=== PATIENT | female | born 1940 | race Caucasian/White ===

== ENCOUNTER 2016-03-17 13:07 | Observation (INO) | payer OTHER ==
--- NOTE | 2016-03-17 13:44 | EDPHY ---
H & P Time Seen by Provider: 03/17/16 13:44 HPI/ROS: CHIEF COMPLAINT: Short of breath HISTORY OF PRESENT ILLNESS: This 75-year-old woman has a history of interstitial lung disease and she was child and history of prior pulmonary embolism. She returned from airplane flight to [place] on this past Monday but also had a recent upper respiratory infection with nonproductive cough and congestion. She has felt increasingly exhausted and shortness of breath on exertion since [place] returned [place] She says her shortness of breath is worse with exertion and she has trouble walking from 1 side of her house to the other without getting short of breath. She still is a little bit of a nonproductive cough. No chest pain or hemoptysis or leg swelling. Symptoms are moderate to severe today and she called her primary care physician at [facility] who requested that she respond to the closest emergency department for evaluation. REVIEW OF SYSTEMS: Eye: no change in vision ENT: no sore throat Cardiac: no chest pain or syncope Pulmonary: HPI Abdomen: no vomiting, diarrhea, abdominal pain Musculoskeletal: no back pain Skin: no rash Neuro: no headache Constitutional: no fever : no urinary symptoms A comprehensive 10 point review of systems is otherwise negative aside from elements mentioned in the history of present illness. PAST MEDICAL HISTORY: Discharge summary dated 11/08/2008 reviewed personally by myself includes hypothyroid, hypertension, renal stones, interstitial lung disease, anemia, pulmonary embolism. Social history: Nonsmoker General Appearance: Alert and conversant, cooperative. Eyes: No scleral icterus. 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 ENT, Mouth: Normal mucous membranes. Respiratory: Normal respiratory effort, breath sounds equal, lungs are clear to auscultation. Cardiovascular: Regular rate and rhythm. Gastrointestinal: Abdomen is soft and non tender. Neurological: Alert and oriented x3. Normally conversant. Face symmetric, normal movement and sensation in all extremities. Skin: Warm and dry, no rashes. Musculoskeletal: No peripheral edema and no joint swelling. No calf tenderness Psychiatric: Not agitated. Emergency Department course/MDM: Plan for EKG and troponin. Suspicion for pulmonary embolism is at least moderate with the degree of her symptoms and previous pulmonary embolism at least once. I think that even with negative D-dimer my suspicion would be high enough for imaging, CT scan angiography of the chest discussed and consented. 1550: CT results reviewed with the patient, evidence of pulmonary embolism on the right side. Lovenox 60mg SQ administered in ED. 1539: Discussed with Agrawal [facility] requested admit her to [facility]. Smoking Status: Former smoker Constitutional: Initial Vital Signs Temperature (C) 36.8 C 03/17/16 13:19 Heart Rate 65 03/17/16 13:19 Respiratory Rate 18 03/17/16 13:19 Blood Pressure 142/67 H 03/17/16 13:19 O2 Sat (%) 95 03/17/16 13:19 O2 Delivery Mode Room Air Allergies/Adverse Reactions: No Known Allergies Allergy (Verified 03/17/16 13:16) Home Medications: Medication Instructions Recorded Atenolol [Tenormin 50 mg (*)] 50 mg PO BID 03/17/16 Atorvastatin Calcium [Lipitor 10 10 mg PO DAILY 03/17/16 mg (*)] Citalopram Hydrobromide [celeXA 10 15 mg PO DAILY 03/17/16 MG] Furosemide [Lasix 20 MG (*)] 20 mg PO DAILY 03/17/16 Gabapentin [Neurontin 300 MG (*)] 300 mg PO HS 03/17/16 Gabapentin [Neurontin 300 MG (*)] 600 mg PO DAILY 03/17/16 Levothyroxine [Synthroid 112 mcg 112 mcg PO DAILY06 03/17/16 (*)] Potassium Cl [Klor-Con] 10 meq PO BID 03/17/16 Ranitidine HCl [Taladine] 150 mg PO BID 03/17/16 amLODIPine BESYLATE [Norvasc 10 mg 10 mg PO DAILY 03/17/16 (*)] traMADol [Ultram 50 mg (*)] 50 mg PO HS 03/17/16 traZODone [traZODONE 50MG (*)] 50 mg PO HS 03/17/16 Medical Decision Making - Diagnostics EKG Interpretation: 12-lead EKG interpreted by me; official reading is in trace master. My interpretation is sinus rhythm, borderline left axis, rate 61 with no acute ischemic changes Imaging: CT angiography of the chest reviewed with Dr. Mcleod and independently by myself at 3:34 p.m. shows right-sided pulmonary embolism. Differential Diagnosis: Differential diagnosis considered for shortness of breath including but not limited to pulmonary infectious process, COPD, asthma, pulmonary embolus and congestive heart failure. Consult/Admit Bed Type: Dr. Lucas 3653 - Data Points Laboratory Results: Laboratory Results 03/17/16 14:00 03/17/16 14:00 03/17/16 03/17/16 03/17/16 14:20 14:09 14:00 WBC 8.80 10^3/uL (3.80-9.50) RBC 4.65 10^6/uL (4.18-5.33) Hgb 11.2 L g/dL (12.6-16.3) POC Hgb 12.9 gm/dL (12.3-15.9) Hct 36.7 L % (38.0-47.0) POC Hct 38 % (35.5-47.5) MCV 78.9 L fL (81.5-99.8) MCH 24.1 L pg (27.9-34.1) MCHC 30.5 L g/dL (32.4-36.7) RDW 15.2 % (11.5-15.2) Plt Count 382 10^3/uL (150-400) MPV 9.6 fL (8.7-11.7) Neut % (Auto) 74.2 % (39.3-74.2) Lymph % (Auto) 14.0 L % (15.0-45.0) [place] % (Auto) 8.5 % (4.5-13.0) Eos % (Auto) 2.4 % (0.6-7.6) Baso % (Auto) 0.6 % (0.3-1.7) Nucleat RBC Rel Count 0.0 % (0.0-0.2) Absolute Neuts (auto) 6.53 H 10^3/uL (1.70-6.50) Absolute Lymphs (auto) 1.23 10^3/uL (1.00-3.00) Absolute Monos (auto) 0.75 10^3/uL (0.30-0.80) Absolute Eos (auto) 0.21 10^3/uL (0.03-0.40) Absolute Basos (auto) 0.05 10^3/uL (0.02-0.10) Absolute Nucleated RBC 0.00 10^3/uL (0-0.01) Immature Gran % 0.3 % (0.0-1.1) Immature Gran # 0.03 10^3/uL (0.00-0.10) PT 12.4 SEC (12.0-15.0) INR 0.93 (0.83-1.16) APTT 21.5 L SEC (23.0-38.0) POC Sodium 147 H mEq/L (134-144) Sodium 147 H mEq/L (134-144) POC Potassium 4.1 mEq/L (3.3-5.0) Potassium 4.6 mEq/L (3.5-5.2) POC Chloride 110 H mEq/L (96-108) Chloride 108 mEq/L (97-110) Carbon Dioxide 23 mEq/l (22-31) Anion Gap 16 mEq/L (8-16) POC BUN 20 mg/dL (7-23) BUN 17 mg/dL (7-23) Creatinine 0.9 mg/dL (0.6-1.0) POC Creatinine 1.0 mg/dL (0.6-1.2) Estimated GFR > 60 Glucose 97 mg/dL (70-100) POC Glucose 103 H mg/dL (70-100) Calcium 10.1 mg/dL (8.5-10.4) Troponin I < 0.012 ng/mL (0-0.034) Influenza Typ A,B (DFA) NEGATIVE FOR FLU (NEGATIVE) Medications Given: Discontinued Medications Enoxaparin Sodium (Lovenox) 60 mg SC EDNOW ONE Stop: 03/17/16 15:37 Last Admin: 03/17/16 16:05 Dose: 60 mg Point of Care Test Results: 03/17/16 14:09 POC Sodium 147 H POC Potassium 4.1 POC Chloride 110 H POC BUN 20 POC Creatinine 1.0 POC Glucose 103 H Departure - Departure Disposition: [facility] Clinical Impression: Pulmonary embolism Condition: Good
--- NOTE | 2016-03-17 14:12 | CPEKG ---
Heart Rate: 61 RR Interval: 984 P-R Interval: 164 QRSD Interval: 86 QT Interval: 472 QTC Interval: 476 P [place]: 14 QRS [place]: -22 T Wave [place]: 44 EKG Severity - OTHERWISE NORMAL ECG - EKG Impression: SINUS RHYTHM EKG Impression: BORDERLINE LEFT AXIS DEVIATION Electronically Signed By: Brandon Gillespie 17-Mar-2016 14:16:13
[2016-03-17 14:26] LABS: % IMMATURE GRANULYOCYTES 0.3 % (0.0-1.1); ABSOLUTE IMMATURE GRANULOCYTES 0.03 10^3/uL (0.00-0.10); ADD DIFF? NO; ADD MORPH? NO; ADD SCAN? NO; ATYPICAL LYMPHOCYTE FLAG 20 (0-99); FRAGMENT RBC FLAG 0 (0-99); HEMATOCRIT 36.7 % (38.0-47.0); HEMOGLOBIN 11.2 g/dL (12.6-16.3); LEFT SHIFT FLG 0 (0-99); LIPEMIA HEMOLYSIS FLAG 80 (0-99); MEAN CELL HEMOGLOBIN 24.1 pg (27.9-34.1); MEAN CELL HEMOGLOBIN CONCENTR. 30.5 g/dL (32.4-36.7); MEAN CELL VOLUME 78.9 fL (81.5-99.8); MEAN PLATELET VOLUME 9.6 fL (8.7-11.7); PLATELET CLUMPS FLAG 10 (0-99); PLATELET COUNT 382 10^3/uL (150-400); RED BLOOD CELL COUNT 4.65 10^6/uL (4.18-5.33); RED CELL DISTRIBUTION WIDTH 15.2 % (11.5-15.2)
[2016-03-17 14:36] LABS: APTT 21.5 SEC (23.0-38.0); INR 0.93 (0.83-1.16); PROTIME(PATIENT) 12.4 SEC (12.0-15.0)
[2016-03-17] MEDS ORDERED: IOPAMIDOL (ISOVUE 370) 75 ML BTL IV ONE (14:40)
[2016-03-17 14:44] LABS: ANION GAP 16 mEq/L (8-16); CALCIUM 10.1 mg/dL (8.5-10.4); CARBON DIOXIDE 23 mEq/l (22-31); CHLORIDE 108 mEq/L (97-110); CREATININE 0.9 mg/dL (0.6-1.0); GLOMERULAR FILTRATION RATE > 60; GLUCOSE 97 mg/dL (70-100); POTASSIUM 4.6 mEq/L (3.5-5.2); SODIUM 147 mEq/L (134-144)
[2016-03-17 14:55] LABS: TROPONIN I < 0.012 ng/mL (0-0.034)
[2016-03-17] MEDS ORDERED: ENOXAPARIN 60 MG/0.6 ML SYR SC ONE (15:36)
--- NOTE | 2016-03-17 15:46 | CT ---
CT Pulmonary Angiogram Clinical Indications: Dyspnea, history of pulmonary embolism. Technique: Thinly collimated multidetector helical CT imaging was performed through the chest while 90 mL Isovue-370 were injected intravenously, without complication. The images were then transferred to an independent workstation where multiplanar and three-dimensional reconstructions were performed by me and reviewed at multiple windows. Dose reduction techniques were utilized. Findings Chest: No pulmonary masses are found. No pleural effusion. No compression fracture of thoracic spi ne. Stenosis of right subclavian vein is found in the usual place between the clavicle and the right 1st rib. CT Pulmonary Angiogram: Filling defects are present within upper and lower lobe branches of right pu lmonary artery. Left pulmonary artery and branches are clear Right ventricle and right atrium are no t dilated. Impressions 1. Acute right pulmonary embolism. 2. Stenosis of right subclavian vein. I discussed results with Dr. Brandon Gillespie at 1534 hours.
[2016-03-17] MEDS ORDERED: ONDANSETRON DISINTEGRATING 4 MG TAB PO PRN (17:14)
[2016-03-17] MEDS ORDERED: ACETAMINOPHEN 325 MG TAB PO PRN (17:14)
[2016-03-17] MEDS ORDERED: ONDANSETRON 4 MG/2 ML VIAL IVP PRN (17:14)
--- NOTE | 2016-03-17 17:51 | GHP ---
[f rep st] HISTORY AND PHYSICAL DATE OF ADMISSION: 03/17/2016 CHIEF COMPLAINT: Shortness of breath. HISTORY OF PRESENT ILLNESS: This is a 75-year-old female with a history of pulmonary embolism in the past. She had been on anticoagulation until several years ago. She has a vacation home in [facility] and states that she just came back from there. While she was in [facility], she did have some right lower ext remity swelling. She also had a cough and a little bit of shortness of breath at the time, although this was mild. When she came back to [place], she noticed shortness of breath almost immediately. She [place] [address] [place] and has been having significant dyspnea on exertion. She is not having any chest pain. She has a mild cough that is nonproductive. No fevers or chills. The swelli ng in her leg seems to be improving. REVIEW OF SYSTEMS: A 10-point review of systems was obtained and other than stated above was negativ e. PAST MEDICAL HISTORY: 1. Pulmonary embolism at least twice, although her memory is somewhat shaky. She says she had some 3 or 4 years ago, but then also on an H and P in 2008 it looks like she had one a year prior to that. 2. Interstitial lung disease, although this appears to be quiescent at this time. 3. History of kidney stones. 4. Hypothyroidism. 5. Restless legs syndrome. 6. Hypertension. 7. GERD. SOCIAL HISTORY: No smoking. Occasional alcohol. Is . FAMILY HISTORY: Type 2 diabetes and hypertension but no blood clots. PHYSICAL EXAMINATION: VITAL SIGNS: Afebrile. Blood pressure is 158/60. Heart rate is 60. Oxygen saturation 95% on room air, 98% on 2 L. GENERAL: The patient is well developed. No apparent distre ss. HEENT: Nonicteric sclerae. Extraocular movements intact. Moist mucous membranes. NECK: Supp le. No thyromegaly. LUNGS: Good effort. Clear to auscultation bilaterally. CARDIOVASCULAR: Regu lar rate and rhythm. No murmurs or gallops. ABDOMEN: Positive bowel sounds. Soft, nontender, nond istended. No hepatosplenomegaly. EXTREMITIES: No clubbing, cyanosis, or edema. SKIN: Without sergey h. Warm, dry, intact. NEUROLOGIC: Alert and oriented x3. Moves all 4 extremities equally. PSYCH: Normal mood and affect. LABS: White count is 8. Hemoglobin is 11. Platelets are 389. Sodium 147, potassium 4.1. BUN is 2 3, creatinine 0.9. Troponin is negative. EKG, personally reviewed and interpreted, shows normal sinus rhythm with no ischemic changes. ASSESSMENT: This is a 75-year-old female presenting with recurrent pulmonary embolism. PLAN: 1. Pulmonary embolism. The patient will be admitted. Lovenox will be started. She is interested i n trying one of the newer anticoagulants. Thus, we will hold off on any Coumadin loading. She has n o evidence of right heart strain, at least on CT scan or on EKG. Her vitals are stable, and she has no more swelling in her legs. I do not see a clear indication for getting an echocardiogram or ultra sound at this point. She should be on lifelong Coumadin no matter what her hypercoagulable panel womoisés villanueva say. 2. Hypertension. We will continue her medications. 3. Questionable history of interstitial lung disease. This is not being read out on CT scan. 4. 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 The patient does not seem to be having symptoms. 5. Admission. The patient will be admitted under full admission status. Case discussed with the ER doctor. Old records are reviewed and summarized in the HPI. /[id number]/MODL
[2016-03-17] MEDS: ATENOLOL 50 MG TAB PO SCH (20:07)
[2016-03-17] MEDS: FAMOTIDINE 20 MG TAB PO SCH (20:07)
[2016-03-17] MEDS: POTASSIUM CL 10 MEQ TAB PO SCH (20:08)
[2016-03-17] MEDS: ENOXAPARIN 60 MG/0.6 ML SYR SC SCH (20:08)
[2016-03-17] MEDS ORDERED: traZODone 50 MG TAB PO SCH (21:00)
[2016-03-17] MEDS ORDERED: RANITIDINE HCL 150 MG PO SCH (21:00)
[2016-03-17] MEDS ORDERED: GABAPENTIN 300 MG CAP PO SCH (21:00)
[2016-03-18] MEDS ORDERED: MELATONIN 3 MG TAB PO PRN (01:26)
[2016-03-18] MEDS ORDERED: LEVOTHYROXINE 112 MCG TAB PO SCH (06:00)
[2016-03-18 06:41] LABS: % IMMATURE GRANULYOCYTES 0.3 % (0.0-1.1); ABSOLUTE IMMATURE GRANULOCYTES 0.02 10^3/uL (0.00-0.10); ADD DIFF? NO; ADD MORPH? NO; ADD SCAN? NO; ATYPICAL LYMPHOCYTE FLAG 30 (0-99); FRAGMENT RBC FLAG 0 (0-99); HEMATOCRIT 32.6 % (38.0-47.0); HEMOGLOBIN 9.9 g/dL (12.6-16.3); LEFT SHIFT FLG 0 (0-99); LIPEMIA HEMOLYSIS FLAG 80 (0-99); MEAN CELL HEMOGLOBIN 24.4 pg (27.9-34.1); MEAN CELL HEMOGLOBIN CONCENTR. 30.4 g/dL (32.4-36.7); MEAN CELL VOLUME 80.3 fL (81.5-99.8); MEAN PLATELET VOLUME 9.8 fL (8.7-11.7); PLATELET CLUMPS FLAG 0 (0-99); PLATELET COUNT 318 10^3/uL (150-400); RED BLOOD CELL COUNT 4.06 10^6/uL (4.18-5.33); RED CELL DISTRIBUTION WIDTH 15.2 % (11.5-15.2)
[2016-03-18 06:46] LABS: ALANINE AMINOTRANSFERASE 30 IU/L (9-52); ALKALINE PHOSPHATASE 116 IU/L (38-126); ANION GAP 12 mEq/L (8-16); ASPARTATE AMINOTRANSFERASE 20 IU/L (14-46); BILIRUBIN,TOTAL 0.3 mg/dL (0.1-1.4); CALCIUM 9.2 mg/dL (8.5-10.4); CARBON DIOXIDE 27 mEq/l (22-31); CHLORIDE 107 mEq/L (97-110); CREATININE 0.9 mg/dL (0.6-1.0); GLOMERULAR FILTRATION RATE > 60; GLUCOSE 97 mg/dL (70-100); SODIUM 146 mEq/L (134-144); TOTAL PROTEIN 5.8 g/dL (6.3-8.2)
[2016-03-18] MEDS ORDERED: traMADol 50 MG TAB PO SCH (09:00)
[2016-03-18] MEDS ORDERED: CITALOPRAM HYDROBROMIDE 15 MG PO SCH (09:00)
[2016-03-18] MEDS ORDERED: ATORVASTATIN CALCIUM 10 MG TAB PO SCH (09:00)
[2016-03-18] MEDS ORDERED: FUROSEMIDE 20 MG TAB PO SCH (09:00)
[2016-03-18] MEDS ORDERED: GABAPENTIN 300 MG CAP PO SCH (09:00)
[2016-03-18] MEDS ORDERED: CITALOPRAM 10 MG PO SCH ×2 (09:00)
[2016-03-18] MEDS: ATENOLOL 50 MG TAB PO SCH (09:52)
[2016-03-18] MEDS: ENOXAPARIN 60 MG/0.6 ML SYR SC SCH (09:52)
[2016-03-18] MEDS: FAMOTIDINE 20 MG TAB PO SCH (09:53)
[2016-03-18] MEDS: POTASSIUM CL 10 MEQ TAB PO SCH (09:54)
[2016-03-18 11:12] VITALS: BP 117/59; PULSE 59; RESP 16; TEMP 98.1; O2SAT 90
[2016-03-18] MEDS ORDERED: CITALOPRAM 20 MG TAB PO SCH (12:00)
--- NOTE | 2016-03-19 03:30 | GDS ---
[f rep st] DISCHARGE SUMMARY DISCHARGE DIAGNOSES: Include. 1. Acute pulmonary embolism. 2. History of previous pulmonary embolism. 3. Interstitial lung disease thought to be quiescent. 4. History of kidney stones. 5. Hypothyroidism. 6. Restless legs syndrome. 7. Hypertension. 8. Gastroesophageal reflux disease. HISTORY OF PRESENT ILLNESS: A 75-year-old female, presenting with acute shortness of breath after a trip to [facility]. For details of the patient's initial presentation, please see the history and physical dated 03/17/2016. CONSULTANTS: Consultative services on this patient were none. PROCEDURES: 03/17/2016: The patient had a CTA of the chest. This shows acute right pulmonary emboli sm. HOSPITAL COURSE: Acute recurrent pulmonary embolism. The patient remained hemodynamically stable da y of disposition. Oxygen saturations were ranging between 90% and 96% on room air. The patient is n ot tachycardic. Denies pleuritic chest pain. After discussion about options for anticoagulation. T he patient and her opted for Lovenox and Coumadin, to discuss the novel anticoagulants in the outpatient setting with her primary care provider. The patient is being provided 14 injections of L ovenox as well as 5 mg of Coumadin daily. She is to have her 1st INR checked on Monday, post disposi tion, 03/21/2016. MEDICATIONS: At the time of disposition, please reference medication reconciliation printed on 03/18. FOLLOWUP: Appointments for this patient include for PCP on March 21, for an INR check in consult ation regarding novel anticoagulants. PENDING STUDIES: At the time of this dictation are none. I spent greater than 30 minutes in the planning and coordination of this discharge. /[id number]/MODL
== END 2016-03-18 13:39 | disposition home or self-care (01) ==
LOC: INTOOBSV 15:40 → F3N 17:06
PROVIDERS: ADMIT Internal Medicine; ATTEND Hospitalist
DX: I26.99 Other pulmonary embolism without acute cor pulmonale (principal); E03.9 Hypothyroidism, unspecified; G25.81 Restless legs syndrome; I10 Essential (primary) hypertension; K21.9 Gastro-esophageal reflux disease without esophagitis; Z87.442 Personal history of urinary calculi
CPT/HCPCS: 71275; 93005; 99285; G0378; J1650; 82947-QW

== ENCOUNTER 2016-10-20 05:42 | Emergency (ER) | payer OTHER ==
[2016-10-20 05:55] VITALS: BP 158/74; PULSE 63; RESP 19; TEMP 98.4; O2SAT 94
[2016-10-20] MEDS ORDERED: HYDROCODONE/APAP 5/325 TAB ONE (06:04)
[2016-10-20] MEDS ORDERED: HYDROCODONE/APAP 5/325 TAB PO ONE (06:05)
--- NOTE | 2016-10-20 06:11 | EDPHY ---
H & P Stated Complaint: r sided neck pain Time Seen by Provider: 10/20/16 05:56 HPI/ROS: Chief Complaint: Neck spasm HPI: 76-year-old woman with a history of PEs, on Coumadin been having right- sided neck spasm for the last 2 days. She did take a Vicodin yesterday with significant relief but has run out of that medication. Denies any new numbness or tingling. No headache. No nausea or vomiting. Pain is on the right side of the neck. When worse when she woke up. Also took some tramadol which she takes daily for fibromyalgia. She has had similar pains in the past for which she has taken Vicodin. No new traumatic injuries or falls. No vision or hearing changes. No dizziness. No difficulty walking. ROS: 10 point Review of Systems is negative except as noted in the HPI. PMH: PE, fibromyalgia Social History: No smoking, occasional alcohol, no recreational drug use Family History: non-contributory Physical Exam: Gen: Awake, Alert, No Distress HEENT: Nose: no rhinorrhea Eyes: PERRLA, EOMI Mouth: Moist mucosa Neck: She has palpable muscle spasm in the right paraspinal muscles extending to the trapezius with the exception occiput. There is no midline tenderness. no bruits. Chest: nontender, lungs clear to auscultation Heart: S1, S2 normal, no murmur Abd: Soft, non-tender, no guarding Back: no CVA tenderness, no midline tenderness Ext: no edema, non-tender Skin: no rash Neuro: CN II-XII intact, Sensation grossly intact, Strength 5/5 in bilateral upper and lower extremities - Personal History Current Tetanus/Diphtheria Vaccine: Yes Current Tetanus Diphtheria and Acellular Pertussis (TDAP): Yes - Medical/Surgical History Hx Asthma: No Hx Chronic Respiratory Disease: No Hx Diabetes: No Hx Cardiac Disease: No Hx Renal Disease: No Hx Cirrhosis: No Hx Alcoholism: No Hx HIV/AIDS: No Hx Splenectomy or Spleen Trauma: No Other PMH: fibromyalgia, GERD, depression, HTN, neck fusion, lumbar fusion, interstitial lung disease/PE. hysterectomy - Social History Smoking Status: Former smoker Constitutional: Initial Vital Signs Temperature (C) 36.9 C 10/20/16 05:49 Heart Rate 63 10/20/16 05:49 Respiratory Rate 19 10/20/16 05:49 Blood Pressure 158/74 H 10/20/16 05:49 O2 Sat (%) 94 10/20/16 05:49 O2 Delivery Mode Room Air Allergies/Adverse Reactions: No Known Allergies Allergy (Verified 03/17/16 13:16) Home Medications: Medication Instructions Recorded Atenolol [Tenormin 50 mg (*)] 50 mg PO BID 03/17/16 Atorvastatin Calcium [Lipitor 10 10 mg PO DAILY 03/17/16 mg (*)] Citalopram Hydrobromide [celeXA 10 30 mg PO DAILY 03/17/16 MG] Furosemide [Lasix 20 MG (*)] 20 mg PO DAILY 03/17/16 Gabapentin [Neurontin 300 MG (*)] 300 mg PO HS 03/17/16 Gabapentin [Neurontin 300 MG (*)] 600 mg PO DAILY 03/17/16 Levothyroxine [Synthroid 112 mcg 112 mcg PO DAILY06 03/17/16 (*)] Potassium Cl [Klor-Con 10 meq (RX)] 10 meq PO BID 03/17/16 Ranitidine HCl [Taladine] 150 mg PO BID 03/17/16 amLODIPine BESYLATE [Norvasc 10 mg 10 mg PO DAILY 03/17/16 (*)] traMADol [Ultram 50 mg (*)] 50 mg PO HS 03/17/16 Warfarin Sodium 5 mg PO DAILY #30 tablet 03/18/16 Hydrocodone/Acetaminophen 1 - 2 each PO Q4-6PRN PRN #10 10/20/16 [Hydrocodon-Acetaminophen 5-325] tablet Medical Decision Making ED Course/Re-evaluation: Patient is improved after a single Vicodin. There is no red flags for acute bleeding or thrombus at this time. She is completely neurologically intact. She has no midline tenderness. She has had no trauma. Will discharge with a short course of Vicodin as needed, follow up with primary care physician. - Data Points Medications Given: Discontinued Medications Hydrocodone Bitart/Acetaminophen ([place] 5/325) 1 tab PO EDNOW ONE Stop: 10/20/16 06:06 Last Admin: 10/20/16 06:06 Dose: 1 tab Departure - Departure Disposition: Home, Routine, Self-Care Clinical Impression: Neck muscle spasm Condition: Good Instructions: Spasmodic Torticollis (ED) Additional Instructions: May take Vicodin as needed for the pain. Follow up with primary care physician in 2-3 days for re-evaluation. Return for headache, nausea, vomiting, dizziness, numbness, tingling, or any other concerns. Referrals: GIANLUCA,UNKNOWN [Other] - As per Instructions Prescriptions: Hydrocodone/Acetaminophen [Hydrocodon-Acetaminophen 5-325] 1 - 2 each PO Q4- 6PRN PRN #10 tablet PRN Reason: Pain, Severe
== END 2016-10-20 06:40 | disposition home or self-care (01) ==
DX: M62.838 Other muscle spasm (principal); I10 Essential (primary) hypertension; Z79.01 Long term (current) use of anticoagulants; Z87.891 Personal history of nicotine dependence

== ENCOUNTER 2016-11-18 08:47 | Emergency (ER) | payer OTHER ==
[2016-11-18 08:55] VITALS: PULSE 59; TEMP 98.1
[2016-11-18] MEDS ORDERED: oxyCODONE IR 5 MG TAB PO ONE (09:14)
--- NOTE | 2016-11-18 09:18 | EDPHY ---
H & P Time Seen by Provider: 11/18/16 09:00 HPI/ROS: CHIEF COMPLAINT: right-sided back pain HISTORY OF PRESENT ILLNESS: Patient is a history of renal colic. She is also on warfarin for history of pulmonary embolism. She has fibromyalgia and chronic neck and back pain with previous lumbar spinal fusion. She recently had travel to [place] and returned a week ago on Monday. She presents with 5 days of mild urinary urgency and frequency as well as right-sided back pain which is worse with movement. It does not radiate and it is not associated with weakness or numbness in extremities or fever or chills or recent fall injury or trauma. Symptoms mild after taking 1 of her oxycodone at home. REVIEW OF SYSTEMS: Eye: no change in vision. Chronic "lazy eye "on the right which is not new ENT: no sore throat Cardiac: no chest pain or syncope Pulmonary: no cough or SOB Abdomen: no vomiting, diarrhea, abdominal pain Musculoskeletal: HPI Skin: no rash Neuro: no headache Constitutional: no fever : HPI A comprehensive 10 point review of systems is otherwise negative aside from elements mentioned in the history of present illness. PAST MEDICAL HISTORY: Includes pulmonary embolism on warfarin, INR 2.9 2 days ago by her report. Interstitial lung disease, hysterectomy, spinal fusion cervical and lumbar, depression, fibromyalgia, hypertension. Social history: Here with her , recent travel as noted before General Appearance: Alert and conversant, cooperative. Eyes: No scleral icterus. Extraocular motion intact, right eye lateral gaze at rest. ENT, Mouth: Normal mucous membranes. Respiratory: Normal respiratory effort, breath sounds equal, lungs are clear to auscultation. Speaks in full sentences and no increased work of breathing. Cardiovascular: Regular rate and rhythm. Gastrointestinal: Abdomen is soft and non tender. Normal bowel sounds, no rebound or guarding, no focal tenderness, negative [place] sign. Neurological: Alert and oriented x3. Normally conversant. Face symmetric, normal movement and sensation in all extremities. Toes downgoing bilaterally. No clonus. Skin: Warm and dry, no rashes. Musculoskeletal: Mild right-sided flank tenderness which is worse with sitting up or twisting of her torso. Psychiatric: Not agitated. Emergency Department course/MDM: Likely musculoskeletal. Differential includes but not limited to arterial occlusion, venous thromboembolism, retroperitoneal hematoma, spinal cord problem all I think are unlikely. Urinalysis, oral oxycodone 5 mg, noncontrast CT to evaluate for renal colic. CT negative per [place] at 9:53 a.m.. Likely urinary tract infection, treat with Keflex. Does not have symptoms of upper tract infection or urosepsis. My clinical impression is that her back pain is more likely to be musculoskeletal. Smoking Status: Former smoker Constitutional: Initial Vital Signs Temperature (C) 36.7 C 11/18/16 08:48 Heart Rate 59 L 11/18/16 08:48 Respiratory Rate 11/18/16 08:48 Blood Pressure 121/56 H 11/18/16 08:48 O2 Sat (%) 98 11/18/16 08:48 O2 Delivery Mode Room Air Allergies/Adverse Reactions: No Known Allergies Allergy (Verified 03/17/16 13:16) Home Medications: Medication Instructions Recorded Atenolol [Tenormin 50 mg (*)] 50 mg PO BID 03/17/16 Atorvastatin Calcium [Lipitor 10 10 mg PO DAILY 03/17/16 mg (*)] Citalopram Hydrobromide [celeXA 10 30 mg PO DAILY 03/17/16 MG] Furosemide [Lasix 20 MG (*)] 20 mg PO DAILY 03/17/16 Gabapentin [Neurontin 300 MG (*)] 300 mg PO HS 03/17/16 Gabapentin [Neurontin 300 MG (*)] 600 mg PO DAILY 03/17/16 Levothyroxine [Synthroid 112 mcg 112 mcg PO DAILY06 03/17/16 (*)] Potassium Cl [Klor-Con 10 meq (RX)] 10 meq PO BID 03/17/16 Ranitidine HCl [Taladine] 150 mg PO BID 03/17/16 amLODIPine BESYLATE [Norvasc 10 mg 10 mg PO DAILY 03/17/16 (*)] traMADol [Ultram 50 mg (*)] 50 mg PO HS 03/17/16 Warfarin Sodium 5 mg PO DAILY #30 tablet 03/18/16 Hydrocodone/Acetaminophen 1 - 2 each PO Q4-6PRN PRN #10 10/20/16 [Hydrocodon-Acetaminophen 5-325] tablet Cephalexin [Keflex] 500 mg PO TID 7 Days cap 11/18/16 Medical Decision Making - Diagnostics Imaging Results: Imaging Impressions Abdomen/Pelvis CT 11/18/16 09:14 Impression: 1. Constipation. 2. 1 cm renal angiomyolipoma. 3. Small hiatal hernia. 4. Slight increase in dilatation of the common bile duct, without appreciable intrahepatic biliary dilatation. 5. Degenerative change in the spine. 6. Additional findings as above. Findings discussed with Brandon Gillespie on November 18, 2016 at 9:52 a.m. Attention: This CT examination is specifically designed to evaluate patients who are clinically suspected of having acute obstructive uropathy. This examination does not use radiographic contrast, and as such, provides only a limited evaluation of the abdomen, pelvis and retroperitoneum. If there is further clinical suspicion for pathological conditions other than obstructive uropathy, a complete CT evaluation of the abdomen and pelvis utilizing intravenous and oral contrast should be considered. Differential Diagnosis: Differential for back pain considered including but not limited to arterial occlusion, venous thromboembolism, retroperitoneal hematoma, pyelonephritis, kidney stone, UTI, aortic aneurysm or dissection. - Data Points Laboratory Results: 11/18/16 09:14 Urine RBC 1-3 /hpf /hpf (0-3) Urine WBC 10-15 /hpf H /hpf (0-3) Ur Epithelial Cells TRACE /lpf /lpf (NONE-1+) Urine Bacteria TRACE /hpf H /hpf (NONE SEEN) Urine Mucus TRACE /lpf /lpf (NONE-1+) Medications Given: Discontinued Medications Oxycodone HCl (Oxycodone Ir) 5 mg PO EDNOW ONE Stop: 11/18/16 09:15 Last Admin: 11/18/16 09:20 Dose: 5 mg Departure - Departure Disposition: Home, Routine, Self-Care Clinical Impression: Urinary tract infection Qualifiers: Urinary tract infection type: acute cystitis Hematuria presence: without hematuria Qualified Code(s): N30.00 - Acute cystitis without hematuria Condition: Good Instructions: Urinary Tract Infection in Women (ED) Additional Instructions: Call in 48 hours for culture results at [phone]. Referrals: GRISEL HOUGH [Other] - As per Instructions [facility] ,. [Edm Groups for Call Sched] - As per Instructions Prescriptions: Cephalexin [Keflex] 500 mg PO TID 7 Days cap
[2016-11-18 09:32] LABS: BACTERIA TRACE /hpf (NONE SEEN); MUCUS TRACE /lpf (NONE-1+)
[2016-11-18 10:24] VITALS: BP 132/84; RESP 16; O2SAT 92
== END 2016-11-18 10:23 | disposition home or self-care (01) ==
DX: N30.00 Acute cystitis without hematuria (principal); B96.89 Other specified bacterial agents as the cause of diseases classified elsewhere; I10 Essential (primary) hypertension; Z79.01 Long term (current) use of anticoagulants; Z87.891 Personal history of nicotine dependence

== ENCOUNTER 2018-05-09 22:42 | Inpatient (IN) | payer OTHER ==
--- NOTE | 2018-05-09 23:23 | EDPHY ---
H & P Stated Complaint: dizzy,sinus COLON, and trouble hearing Time Seen by Provider: 05/09/18 23:16 HPI/ROS: Chief Complaint: Headache, dizzy, hit head HPI: 78-year-old woman with a history of a blood clot in the past, on Coumadin. Patient has been having worsening headache and dizziness since bumping her head 2 days ago. Some nausea no vomiting. Room not spinning. Is feeling off balance. Headaches about a 2/10. She did take Tylenol couple of hours ago. No fevers or chills. No neck pain or stiffness. No numbness or weakness. She did not have a loss of conscious. She did not sustain a laceration. Has a small bump on her head. ROS: 10 systems were reviewed and were negative except those elements noted in the HPI. Social History: No smoking, no alcohol, no recreational drug use Family History: non-contributory Physical Exam: Gen: Awake, Alert, No Distress HEENT: Nose: no rhinorrhea Eyes: PERRLA, EOMI Mouth: Moist mucosa Neck: Supple, no JVD Chest: nontender, lungs clear to auscultation Heart: S1, S2 normal, no murmur Abd: Soft, non-tender, no guarding Back: no CVA tenderness, no midline tenderness Ext: no edema, non-tender Skin: no rash Neuro: CN II-XII intact, Sensation grossly intact, Strength 5/5 in bilateral upper and lower extremities - Personal History Current Tetanus/Diphtheria Vaccine: Yes Current Tetanus Diphtheria and Acellular Pertussis (TDAP): Yes - Medical/Surgical History Hx Asthma: No Hx Chronic Respiratory Disease: Yes Hx Diabetes: No Hx Cardiac Disease: No Hx Renal Disease: No Hx Cirrhosis: No Hx Alcoholism: No Hx HIV/AIDS: No Hx Splenectomy or Spleen Trauma: No Other PMH: fibromyalgia, GERD, depression, HTN, neck fusion, lumbar fusion, interstitial lung disease/PE. hysterectomy - Social History Smoking Status: Former smoker Constitutional: Initial Vital Signs Temperature (C) 36.6 C 05/09/18 22:47 Heart Rate 69 05/09/18 22:47 Respiratory Rate 16 05/09/18 22:47 Blood Pressure 158/68 H 05/09/18 22:47 O2 Sat (%) 92 05/09/18 22:47 O2 Delivery Mode Room Air Allergies/Adverse Reactions: No Known Allergies Allergy (Verified 05/09/18 22:52) Home Medications: Medication Instructions Recorded Atenolol [Tenormin 50 mg (*)] 50 mg PO BID 03/17/16 Atorvastatin Calcium [Lipitor 10 10 mg PO DAILY 03/17/16 mg (*)] Citalopram Hydrobromide [celeXA 10 30 mg PO DAILY 03/17/16 MG] Furosemide [Lasix 20 MG (*)] 20 mg PO DAILY 03/17/16 Gabapentin [Neurontin 300 MG (*)] 300 mg PO HS 03/17/16 Gabapentin [Neurontin 300 MG (*)] 600 mg PO DAILY 03/17/16 Levothyroxine [Synthroid 112 mcg 112 mcg PO DAILY06 03/17/16 (*)] Potassium Cl [Klor-Con 10 meq (RX)] 10 meq PO BID 03/17/16 Ranitidine HCl [Taladine] 150 mg PO BID 03/17/16 amLODIPine BESYLATE [Norvasc 10 mg 10 mg PO DAILY 03/17/16 (*)] traMADol [Ultram 50 mg (*)] 50 mg PO HS 03/17/16 Warfarin Sodium 5 mg PO DAILY #30 tablet 03/18/16 Hydrocodone/Acetaminophen 1 - 2 each PO Q4-6PRN PRN #10 10/20/16 [Hydrocodon-Acetaminophen 5-325] tablet Medical Decision Making - Diagnostics Imaging Results: CT scan of the head shows bilateral subdural hematomas which are mixed density may be of acute superimposed on chronic. There is a minimal shift of the midline right to left about 4-5 mm. Study interpreted by Dr. Frausto, direct Radiology. ED Course/Re-evaluation: 78-year-old woman with worsening headache status post bumping her head. She is on Coumadin. CT scan shows bilateral acute on chronic subdural hematomas. I have discussed with Dr. Chery, trauma surgery. He believes given that the patient but had 2 days ago has no other traumatic injuries that she would be appropriate for neurosurgery in the medicine service. He will be happy to consult if they so desire. I have discussed with Dr. Gleason, neurosurgery. He is requesting the patient be admitted to the Internal Medicine service. He will evaluate. No treatment at this time. I have discussed with , hospitalist. She will admit to her service for further care. Patient is awake alert and appropriate at this time. - Data Points Laboratory Results: Laboratory Results 05/10/18 00:21 05/10/18 00:21 05/10/18 05/10/18 05/10/18 00:21 00:21 00:21 WBC 7.88 10^3/uL 10^3/uL (3.80-9.50) RBC 5.21 10^6/uL 10^6/uL (4.18-5.33) Hgb 15.0 g/dL g/dL (12.6-16.3) Hct 45.7 % % (38.0-47.0) MCV 87.7 fL fL (81.5-99.8) MCH 28.8 pg pg (27.9-34.1) MCHC 32.8 g/dL g/dL (32.4-36.7) RDW 14.6 % % (11.5-15.2) Plt Count 244 10^3/uL 10^3/uL (150-400) MPV 9.5 fL fL (8.7-11.7) Neut % (Auto) 65.4 % % (39.3-74.2) Lymph % (Auto) 20.7 % % (15.0-45.0) [place] % (Auto) 10.5 % % (4.5-13.0) Eos % (Auto) 2.3 % % (0.6-7.6) Baso % (Auto) 0.6 % % (0.3-1.7) Nucleat RBC Rel Count 0.0 % % (0.0-0.2) Absolute Neuts (auto) 5.15 10^3/uL 10^3/uL (1.70-6.50) Absolute Lymphs (auto) 1.63 10^3/uL 10^3/uL (1.00-3.00) Absolute Monos (auto) 0.83 10^3/uL H 10^3/uL (0.30-0.80) Absolute Eos (auto) 0.18 10^3/uL 10^3/uL (0.03-0.40) Absolute Basos (auto) 0.05 10^3/uL 10^3/uL (0.02-0.10) Absolute Nucleated RBC 0.00 10^3/uL 10^3/uL (0-0.01) Immature Gran % 0.5 % % (0.0-1.1) Immature Gran # 0.04 10^3/uL 10^3/uL (0.00-0.10) PT 24.5 SEC H SEC (12.0-15.0) INR 2.34 H (0.83-1.16) APTT 36.3 SEC SEC (23.0-38.0) Sodium 138 mEq/L mEq/L (135-145) Potassium 3.8 mEq/L mEq/L (3.5-5.2) Chloride 106 mEq/L mEq/L (97-110) Carbon Dioxide 24 mEq/l mEq/l (22-31) Anion Gap 8 mEq/L mEq/L (6-14) BUN 15 mg/dL mg/dL (7-23) Creatinine 0.9 mg/dL mg/dL (0.6-1.0) Estimated GFR > 60 Glucose 115 mg/dL H mg/dL (70-100) Calcium 9.4 mg/dL mg/dL (8.5-10.4) Medications Given: Discontinued Medications Acetaminophen (Tylenol) 1,000 mg PO EDNOW ONE Stop: 05/10/18 01:25 Last Admin: 05/10/18 01:27 Dose: 1,000 mg Departure - Departure Disposition: [facility] Inpatient Acute Clinical Impression: Subdural hematoma Condition: Serious
[2018-05-10 00:52] LABS: PLATELET COUNT 244 10^3/uL (150-400)
[2018-05-10 01:03] LABS: INR 2.34 (0.83-1.16); PROTIME(PATIENT) 24.5 SEC (12.0-15.0)
[2018-05-10] MEDS ORDERED: ACETAMINOPHEN 500 MG TAB PO ONE (01:24)
[2018-05-10] MEDS ORDERED: ACETAMINOPHEN 325 MG TAB PO PRN (02:27)
[2018-05-10] MEDS ORDERED: HYDROmorphONE/DILAUDID 1 MG/ML INJ IVP PRN (02:27)
[2018-05-10] MEDS ORDERED: ONDANSETRON 4 MG/2 ML VIAL IVP PRN (02:27)
[2018-05-10] MEDS ORDERED: NS 1,000 ML IV SCH (02:30)
[2018-05-10] MEDS: HYDROCODONE/APAP 5/325 TAB PO PRN ×4 (04:46→20:11)
[2018-05-10 05:33] LABS: PLATELET COUNT 239 10^3/uL (150-400)
--- NOTE | 2018-05-10 07:05 | GHP ---
[f rep st] HISTORY AND PHYSICAL DATE OF ADMISSION: 05/10/2018 SOURCE: The patient provides history as a reliable historian. EMR was reviewed and case discussed w [facility] ED provider. CHIEF COMPLAINT: Headache and lightheadedness. HISTORY OF PRESENT ILLNESS: This is a very pleasant, 78-year-old female with a past medical history significant for recurrent PE, DVT on chronic anticoagulation with Coumadin, interstitial lung disease , kidney stones, hypothyroidism, HTN, chronic pain, who presents to the Emergency Department today wi th complaints of a 2-day history of headache and worsening dizziness since bumping her head on a cabi net while standing up. The patient denies, at the time, she had no loss of consciousness. She did n ot have any lightheadedness or headache prior to her injury. She did not have any visual changes. S he chronically has strabismus in her left eye, which is unchanged. The patient denies any nausea or vomiting. As she did have progressive lightheadedness and worsening headache, she had her dr sarmiento her to the hospital as her symptoms were worsening. The patient initially thought she might have been having a sinus headache and so, she had been trying to treat at home with Flonase. However, he r symptoms continued to progress, as noted above. Additionally, the patient did take some Tylenol at home, which did not definitively treat her headache pain. REVIEW OF SYSTEMS: Ten systems reviewed. Negative, except as noted above. ALLERGIES: No known drug allergies. HOME MEDICATIONS: Not yet reviewed by Pharmacy. Available med list shows tramadol, amlodipine, warf is[place], ranitidine, potassium, levothyroxine, [place], gabapentin, furosemide, citalopram, atorvastatin, atenolol. PAST MEDICAL HISTORY: Significant for recurrent PE, DVT on chronic anticoagulation, history of inter stitial lung disease, kidney stones, hypothyroidism, restless leg syndrome, HTN, GERD, fibromyalgia, depression, chronic pain on chronic narcotic therapy, history of vulvar cancer, status post resection . PAST SURGICAL HISTORY: Significant for lumbar neck fusion, hysterectomy, and a vulvar lesion resecti on x2. FAMILY HISTORY: Diabetes, hypertension. Negative for DVT, PE. SOCIAL HISTORY: The patient is . She lives with her in their own home. The patient reports her has increasing difficulties with his chronic medical issues including Alzheimer d ementia, diabetes. She also notes that he was recently arrested for domestic violence. However, she states that she was never in any physical danger, that the patient was having an outburst, which was overheard by a 911 call. The patient reports that she feels safe at home. The patient reports very rare alcohol intake. No tobacco. No drug use. CODE STATUS: DNR, DNI. PHYSICAL EXAMINATION: VITAL SIGNS: Upon arrival to the ED, blood pressure 158/68, heart rate 69, re spiratory rate 16, O2 saturation was 92% on room air, temperature 36.6. Current vitals available, bl ood pressure is 148/69, heart rate 62, respiratory rate 16, O2 saturation 92% on room air. GENERAL: No acute distress. A very pleasant, elderly, frail-appearing female, who is lying quietly in bed. She is very hard of hearing. HEAD: Normocephalic, atraumatic. EYES: Extraocular muscles are intac t. The patient does have these exotropia of the left eye. Pupils are equal, round, and reactive to light bilaterally and symmetric. No scleral icterus or conjunctival injection. ENT: Mucous membran es appear moist. No oropharyngeal erythema or exudates. Dentition in fair to poor condition. NECK: Supple. Trachea midline. CV: Regular rate and rhythm. No murmurs, rubs, or gallops appreciated. RESPIRATORY: Lungs are clear to auscultation bilaterally. No wheezes, rales, or rhonchi. Unlabor ed breathing. ABDOMEN: Positive bowel sounds. Soft, nontender to palpation. No rebound, guarding, or masses appreciated. : No suprapubic tenderness to palpation. No Maldonado catheter in place. EXT REMITIES: No cyanosis, clubbing. Trace edema bilateral lower extremities. Two-plus pedal pulses. NEURO: Cranial nerves 2-12 are intact and symmetric, with the exception of the left eye with persist ent exotropia and some nystagmus. Moves all extremities otherwise. Sensation intact. PSYCHIATRIC: Patient pleasant, cooperative, talkative. Thought process, content and questions otherwise appropri ate. She does have some decreased hearing. LABORATORY STUDIES: WBC 7.88, H and H are 15.0 and 45.7, MCV 87.7, platelet count 244. Repeat H and H are stable, 14.5 and 44.5. PT is 24.5, INR is 2.34, PTT is 36.3. Sodium 138, potassium 3.8, chlo ride 106, CO2 24, anion gap of 8, BUN 15, creatinine 0.9, GFR greater than 60, glucose 115, calcium i s 9.4. CT head preliminary report was reviewed, showing bilateral subdural hematomas, mixed density may be o f acute superimposed on chronic. Minimal shift of midline [id number] about 4-[address] hea d is pending. ASSESSMENT AND PLAN: This is a pleasant, 78-year-old female with a past medical history significant for recurrent pulmonary embolism, deep vein thrombosis, on Coumadin therapy, interstitial lung diseas e, kidney stones, hypothyroidism, hypertension, gastroesophageal reflux disease, fibromyalgia, chroni c pain, who presents to the Emergency Department with complaints of 2 days of worsening headache and dizziness after a head injury at home. 1. Bilateral subdural hematomas, acute superimposed on chronic. Holding the patient's Coumadin. Mo nitor PT/INR. At this point, we will hold off on reversal given the patient's significantly increase d risk for recurrent pulmonary embolism/deep vein thrombosis. Neurosurgery was consulted from the Em ergency Department, and will plan to see the patient this morning. Repeat CT is pending. Her neurologic exam is intact. She does have a chronic left eye exotropia. The patient does report that her headache is slowly improving. She does not have complaint of any further lightheadedness o r dizziness. 2. History of pulmonary embolism, deep vein thrombosis, on Coumadin. INR last was still therapeutic , greater than 2. Holding anticoagulation, holding reversal at this time. The patient reports that she previously did try a newer agent, but felt that it was not as effective as her Coumadin was and r eports she was experiencing some side effects. 3. Interstitial lung disease. Patient oxygenating on p.r.n. O2 with any narcotic therapy. 4. Hypothyroidism. Resume the patient's replacement when medication reconciliation available. 5. Fibromyalgia, depression, chronic pain, restless leg syndrome, gastroesophageal reflux disease, b enign essential hypertension. Plan to resume the patient's home medications once her medication ella nciliation is completed as per day team. 6. Fluid, electrolyte, nutrition. Intravenous fluids, normal saline for some gentle intravenous flu id hydration overnight. 7. Prophylaxis. Sequential compression devices, holding anticoagulation, as noted above. 8. Code status is do not resuscitate, do not intubate. 9. Disposition. The patient admitted to inpatient status on the [facility] floor for close neurologic monitoring in the setting of acute on chronic-appearing subdural hematomas. We will monitor hemoglob in and hematocrit. Awaiting Neurosurgery evaluation and recommendations. /[id number]/MODL
--- NOTE | 2018-05-10 08:23 | NEUSURGPN ---
Assessment/Plan: Assessment: 78 yr old F with bilateral subdural hematomas Please see dictated consult when available Plan: -CT shows bilateral acute to subacute subdural hematomas with 4mm right to left midline shift, repeat CT this morning appears stable-report is still pending -No repeat imaging needed at this time unless change in exam -Continue to hold Coumadin -Patient currently neurologically intact with a mild headache, will continue to follow exam -Patient discussed with Dr Keller Patient seen and examined by neurosurgical services today 05/10/18 at 0740am. Please call neurosurgery with questions/concerns Subjective: Doing well, mild headache Objective: AxOx 4 CN 2-12 grossly intact No facial droop MAEx4 5/5 BUE, BLE sensation intact to light touch BLE Neuro Check Frequency: per routine Urinary Catheter in Place: No - Physician Discussed Patient with : Krishna Neurosurgery Physical Exam - Vitals, I&O, Labs I and O 05/09/18 05/10/18 05/11/18 05:59 05:59 05:59 Intake Total 50 Balance 50 Weight 72.5 kg Intake: Oral (ml) 50 Other: Number of Voids Toilet 2 Vital Signs Temp Pulse Resp BP Pulse Ox 36.6 C 62 16 148/69 H 92 05/09/18 22:47 05/10/18 01:34 05/10/18 01:34 05/10/18 01:34 05/10/18 01:34 Laboratory Results 05/10/18 04:55 05/10/18 04:55 ICD10 Worksheet Patient Problems: Problems Problem Status Onset Subdural hematoma Acute Pulmonary embolism Acute
[2018-05-10 08:40] LABS: INR 2.05 (0.83-1.16); PROTIME(PATIENT) 22.1 SEC (12.0-15.0)
--- NOTE | 2018-05-10 10:40 | PDMN ---
Medical Necessity Medical necessity: Pt meets IP criteria as of 05/10/2018 per and [facility] M-[id number] ( traumatic Brain Injury, Nonsurgical treatment); A-2 days; Pt requiring inpatient ICU care for ongoing management and monitoring of new (or presumed new ) intracranial pathology on imaging, CT shows bilateral acute subdural hematomas , pt on chronic anticoagulation. Comorbid advanced age, recurrent PE/DVT, interstitial lung disease, HTN, depression, chronic pain on chronic narcotic therapy, vulvular CA.
--- NOTE | 2018-05-10 13:15 | ASMTCMCOM ---
CM Note CM Note Notes: Patient admitted with subacute subdural hematomas, plan to transfer to floor today. PRINT PRODUCER has evaluated and following. CM to follow-up and ensure no CM needed are warranted. Plan: TBD Date Signed: 05/10/2018 01:14 PM Electronically Signed By:Jaqui Hollwoay RN
[2018-05-10] MEDS: ONDANSETRON DISINTEGRATING 4 MG TAB PO PRN (13:57)
--- NOTE | 2018-05-10 14:12 | GCON ---
[f rep st] CONSULTATION DATE OF CONSULTATION: 05/10/2018 CHIEF COMPLAINT: Headache and dizziness. HISTORY OF PRESENT ILLNESS: Patient is a 78-year-old female with past history of PE and DVT, and is on chronic anticoagulation with Coumadin. Patient presented to the emergency department late last night with complaints of headaches and dizziness that were lasting approximately the last 2 to 3 days. Patient reports hitting her head on a cabinet approximately 5 days ago. She was working out on Monday and did feel that she did not have her normal energy level as usual. Patient denies any loss of consciousness when hitting her head. She does note that she has been stumbling with her gait and she had a sensation of some head pressure as though she was having a sinus issue. Patient took some Tylenol at home, which did not treat her headaches, but she does feel that they are improved at this time with the medications in the hospital. REVIEW OF SYSTEMS: A 10-point review of systems was performed and negative aside from what was mentioned in the HPI. ALLERGIES: Patient has no known drug allergies. HOME MEDICATIONS: Atenolol 50 mg p.o. b.i.d., atorvastatin 10 mg p.o. daily, citalopram 30 mg p.o. daily, furosemide 20 mg p.o. daily, gabapentin 300 mg p.o. q.h.s., gabapentin 600 mg p.o. daily, levothyroxine 112 mcg p.o. daily, potassium 10 mEq p.o. b.i.d., ranitidine 150 mg p.o. daily, amlodipine besylate 10 mg p.o. daily, tramadol 50 mg p.o. q.h.s., warfarin 5 mg p.o. daily, hydrocodone/acetaminophen 5/325 mg 1 to 2 tablets p.o. q.4 to 6 hours as needed. PAST MEDICAL HISTORY: Includes recurrent pulmonary embolism, deep vein thrombosis for which is she is on chronic anticoagulation, history of interstitial lung disease, kidney stones, hypothyroid, restless legs syndrome, hypertension, GERD, fibromyalgia, depression, chronic pain, and history of vulvar cancer, status post resection. PAST SURGICAL HISTORY: Vulvar lesion resection x2, lumbar and neck fusion. FAMILY HISTORY: Significant for diabetes and hypertension. SOCIAL HISTORY: Patient is . She lives with her in their home. She states that her was recently arrested for domestic violence; however, she does not feel she is in any physical danger and that she feels safe at home. LABORATORY/IMAGING: White blood cell count is 6.56, hemoglobin 14.5, hematocrit 44.5, platelets 239. PTT 22.1, INR is 2.05. Sodium 140, potassium 4.2, BUN 13, creatinine 0.8, glucose is 102. CT of the head performed without contrast on May 09, 2018, at 2321 demonstrates bilateral acute to subacute subdural hematomas with a right greater than left hyperenhancing foci within the hematomas likely represents acute blood products. There is associated 4 mm [id number] midline shift. Repeat CT performed today May 10, 2018, at 06:00 a.m. demonstrates bilateral mixed density subdural hematomas when compared to prior study. There is more hyperdense acute product posteriorly, similar size of the left collection, and similar to the right, interval increase in size to the right with a right to left midline shift, which is stable of 4 mm. PHYSICAL EXAM: VITAL SIGNS: Blood pressure is 148/69, heart rate 62, respiratory rate 16, oxygen saturation is 92% on room air, temperature is 36.6 degrees Celsius. HEENT: Head is normocephalic and atraumatic. Pupils are equal, round, and reactive to light. EOMIs intact. Full visual singleton by confrontation/RESPIRATORY/CARDIAC: Deferred. GENITOURINARY/RECTAL/ABDOMEN: Deferred. NEURO: The patient is awake and alert, oriented to name, place, location, date, time, and situation. Her memory is intact to immediate, past, and current events. There is no aphasia or dysphonia. Cranial nerves 2 through 12 are grossly intact. Motor: Patient has 5/5 strength in all muscle groups in bilateral upper and lower extremities to include deltoids, biceps, triceps, brachioradialis, wrist flexion, extensors, seamless tube mill operator, intrinsic fingers, iliopsoas, quadriceps, hamstring, plantar flexion, dorsiflexion, EHL testing. Sensation is grossly intact to light touch in all dermatomal distributions bilateral lower extremities. Reflexes: Brachioradialis and knee jerks are 2+/ 4. Babinski is negative, and there is no evidence of clonus. ASSESSMENT AND PLAN: Patient is a 78-year-old female who hit her head on a cabinet approximately 5 days ago. She is on chronic anticoagulation of Coumadin for recurrent pulmonary embolisms and deep vein thrombosis. CT of the brain shows bilateral subdural hematomas, which is mostly stable on repeat imaging this morning. There is a 4 mm [id number] midline shift, which is also stable. Patient is currently neurologically intact, other than a mild headache, which she feels is improving with medications. We recommend continuing to hold Coumadin at this time. We do not recommend reversal or TXA due to her PE/DVT history. We will continue to follow her neurologic exam. There is no need for repeat imaging at this time unless there is a change in her neurologic status and/or exam. Patient agrees with this plan and all questions were answered at the bedside this morning. Patient was seen and examined by neurosurgical services in the intensive care unit this morning, May 10, 2018, at 07:40 a.m. Patient was reviewed with Dr. Keller who saw the patient the same day as the consult. Please contact Neurosurgery with any questions or concerns. /[id number]/MODL MTDD
[2018-05-10 16:14] LABS: INR 1.84 (0.83-1.16); PROTIME(PATIENT) 20.4 SEC (12.0-15.0)
[2018-05-10] MEDS ORDERED: ceFAZolin 2 GM/DEXTROSE 100 ML IV ONE (17:08)
--- NOTE | 2018-05-10 17:55 | PDANEPAE ---
ANE History of Present Illness craniotomy for SDH evacuation ANE Past Medical History - Cardiovascular History Hx Hypertension: Yes Hx Arrhythmias: Yes - Pulmonary History Hx Oxygen in Use at Home: No Hx Sleep Apnea: No Sleep Apnea Screening Result - Last Documented: Negative Pulmonary History Comment: DVT PE, ILD - Endocrine History Hx Diabetes: No Hypothyroid: Yes - Neurological & Psychiatric Hx Hx Neurological and Psychiatric Disorders: Yes Neurological / Psychiatric History Comment: SDH acute on chronic - Chronic Pain History Chronic Pain: Yes ANE Review of Systems Review of systems is: negative Review of Systems: - Exercise capacity Exercise capacity: limited by disability ANE Patient History - Allergies Allergies/Adverse Reactions: No Known Allergies Allergy (Verified 05/09/18 22:52) - Home Medications Home medications: home medication list seen and reviewed Home Medications: Atenolol [Tenormin 50 mg (*)] 50 mg PO BID 03/17/16 [Last Taken 05/09/18 21:00] Atorvastatin Calcium [Lipitor 10 mg (*)] 10 mg PO DAILY 03/17/16 [Last Taken 08/22] Citalopram Hydrobromide [celeXA 10 MG] 20 mg PO DAILY 03/17/16 [Last Taken 05/09] Furosemide [Lasix 20 MG (*)] 20 mg PO DAILY 03/17/16 [Last Taken 05/09/18] Gabapentin [Neurontin 300 MG (*)] 300 mg PO HS 03/17/16 [Last Taken 05/09/18] Gabapentin [Neurontin 300 MG (*)] 600 mg PO DAILY 03/17/16 [Last Taken 05/09/18] Levothyroxine [Synthroid 112 mcg (*)] 168 mcg PO DAILY06 03/17/16 [Last Taken ] Potassium Cl [Klor-Con 10 meq (RX)] 10 meq PO BID 03/17/16 [Last Taken 05/09/18 21:00] Ranitidine HCl [Taladine] 150 mg PO BID 03/17/16 [Last Taken 05/09/18 21:00] amLODIPine BESYLATE [Norvasc 10 mg (*)] 10 mg PO HS 03/17/16 [Last Taken ] traMADol [Ultram 50 mg (*)] 50 mg PO HS 03/17/16 [Last Taken 05/09/18] Citalopram Hydrobromide [celeXA 10 MG] 10 mg PO HS 05/10/18 [Last Taken 05/09/18 ] Warfarin Sodium [Coumadin 2.5MG (*)] 2.5 mg PO SUTUWETHSA 05/10/18 [Last Taken 05/09/18] Warfarin Sodium [Coumadin 5MG (*)] 5 mg PO MOFR 05/10/18 [Last Taken 05/07/18] - NPO status NPO Since - Liquids (Date): 05/10/18 NPO Since - Liquids (Time): 13:30 NPO Since - Solids (Date): 05/10/18 NPO Since - Solids (Time): 13:30 - Anes Hx Anes Hx: no prior problems - Smoking Hx Smoking Status: Former smoker - Family Anes Hx Family Anes Hx: none ANE Labs/Vital Signs - Labs Result Diagrams: 05/10/18 04:55 05/10/18 04:55 - Vital Signs Vital Signs: reviewed preoperatively; see RN documention for details Blood Pressure: 145/71 Heart Rate: 65 Respiratory Rate: 13 O2 Sat (%): 89 Height: 164.59 cm Weight: 72.5 kg ANE Physical Exam - Airway Neck exam: FROM Mallampati Score: Class 1 Mouth exam: poor dentition - Pulmonary Pulmonary: no respiratory distress - Cardiovascular Cardiovascular: regular rate and rhythym - ASA Status ASA Status: IV, E
--- NOTE | 2018-05-10 18:08 | PDHPUP ---
History & Physical Update H&P update statement: This history and physical update is based on an assessment of the patient which was completed after admission or registration (within 24 hours), but prior to the surgery/procedure. H&P update: changes noted (Since the original consultation, the patient has developed worsening headaches and nausea. Imaging demonstrates slight worsening of right to left shift with slight enlargement of right SDH. Concern is that she will continue to worsen. Risks and benefits reviewed with the patient and her family and Dr Guerra and decision is to proceed with reversal of her coumadin and INR with FFP and take her for a right sided craniotomy for SDH evacuation. All questions answered and site marked. Consents signed. )
[2018-05-10] MEDS ORDERED: ONDANSETRON 4 MG/2 ML VIAL ONE (18:30)
[2018-05-10] MEDS ORDERED: LIDOCAINE 2% 100 MG/5 ML SYR ONE (18:30)
[2018-05-10] MEDS ORDERED: DEXAMETHASONE 4 MG/ML VIAL ONE (18:30)
[2018-05-10] MEDS ORDERED: fentaNYL 100 MCG/2 ML INJ ONE (18:30)
[2018-05-10] MEDS ORDERED: ROCURONIUM 50 MG/5 ML VIAL ONE (18:31)
[2018-05-10] MEDS ORDERED: PROPOFOL 200 MG/20 ML VIAL ONE (18:31)
[2018-05-10] MEDS ORDERED: MEPERIDINE 25 MG/0.5 ML AMP IVP PRN (18:38)
[2018-05-10] MEDS ORDERED: HYDROmorphONE/DILAUDID 2 MG/ML INJ IVP PRN (18:38)
[2018-05-10] MEDS ORDERED: ALBUTEROL 3 ML DEYVIAL IH PRN (18:38)
[2018-05-10] MEDS ORDERED: DEXAMETHASONE 4 MG/ML VIAL IVP PRN (18:38)
[2018-05-10] MEDS ORDERED: NALOXONE HCL 0.4 MG/ML INJ IVP PRN (18:38)
[2018-05-10] MEDS ORDERED: fentaNYL 100 MCG/2 ML INJ IVP PRN (18:38)
[2018-05-10] MEDS ORDERED: HYDROCODONE/APAP 5/325 TAB PO PRN (18:38)
[2018-05-10] MEDS ORDERED: oxyCODONE IR 5 MG TAB PO PRN (18:38)
[2018-05-10] MEDS ORDERED: PROMETHAZINE HCL 25 MG/ML INJ IVP PRN (18:38)
[2018-05-10] MEDS ORDERED: LABETALOL HCL 5 MG/ML 20 ML MDV IVP PRN (18:38)
--- NOTE | 2018-05-10 18:40 | POSTANESTH ---
Post Anesthetic Evaluation Cardiovascular Status: Similar to Pre-Op Cond Respiratory Status: Similar to Pre-op Cond. Level of Consciousness/Mental Status: Can Participate in Eval, Mildly Sleepy, Arousable Pain Control: Adequate, Prn Tx Ordered Nausea/Vomiting Control: Adequate, Prn Tx Ordered Complications Possibly Related to Anesthesia: None Noted
[2018-05-10] MEDS ORDERED: GENTAMICIN SULFATE 80 MG/2 ML VIAL ONE (18:43)
[2018-05-10] MEDS ORDERED: BUPIVACAINE/EPI 0.25% 10 ML SDV ONE (18:43)
[2018-05-10] MEDS ORDERED: BACITRACIN ZINC 0.5 OZ OINTTUBE TP ONE ×2 (18:43→19:28)
[2018-05-10] MEDS ORDERED: AVITENE POWDER 1 GM JAR TP ONE (18:45)
[2018-05-10] MEDS ORDERED: MANNITOL 20% 100 GM/500 ML BAG IV ONE (18:47)
[2018-05-10] MEDS ORDERED: THROMBIN (BOVINE) 20,000 UNIT VIAL TP ONE (18:47)
[2018-05-10] MEDS ORDERED: HYDROGEN PEROXIDE 236 ML BOTTLE TP ONE (18:49)
[2018-05-10] MEDS ORDERED: SUGAMMADEX SODIUM 200 MG/2 ML VIAL IVP ONE (19:36)
[2018-05-10] MEDS ORDERED: BISACODYL 10 MG SUPP PR PRN (19:36)
[2018-05-10] MEDS ORDERED: LACTULOSE 20 GM/30 ML UDCUP PO PRN (19:36)
[2018-05-10] MEDS ORDERED: niCARdipine/NACL 200 ML IV PRN (19:36)
[2018-05-10] MEDS ORDERED: POLYETHYLENE GLYCOL 3350 17 GM PKT PO PRN (19:36)
--- NOTE | 2018-05-10 19:43 | SOAPPROG ---
SOAP Progress Note Assessment/Plan: Assessment: 78 yo F sp right mini craniotomy for evacuation of SDH Plan: neuro: stable JW is subdural drain on keppra cardene to keep SBP < [address] in am please call with neuro changes 05/10/18 19:41 Subjective: mild headache, no N/V. Objective: Vital Signs Temp Pulse Resp BP Pulse Ox 36.7 C 65 13 145/71 H 89 L 05/10/18 15:04 05/10/18 18:14 05/10/18 18:14 05/10/18 18:14 05/10/18 18:14 Laboratory Results 05/10/18 04:55 05/10/18 04:55 05/09/18 05/10/18 05/11/18 05:59 05:59 05:59 Intake Total 50 150 Output Total 0 Balance 50 150 PT 20.4 SEC (12.0-15.0) H 05/10/18 15:55 INR 1.84 (0.83-1.16) H 05/10/18 15:55 awake, conversant PERRL, no facial droop ZAC x 4 + light touch C/D/I ICD10 Worksheet Patient Problems: Problems Problem Status Onset Subdural hematoma Acute Pulmonary embolism Acute
[2018-05-10] MEDS ORDERED: NS W/ 20 KCl/L 1,000 ML IV SCH (19:45)
[2018-05-10] MEDS: levETIRAcetam 500 MG TAB PO SCH (20:09)
[2018-05-10] MEDS: traMADol 50 MG TAB PO SCH (20:14)
[2018-05-10] MEDS: GABAPENTIN 300 MG CAP PO SCH (20:15)
[2018-05-10] MEDS: CITALOPRAM 20 MG TAB PO SCH (20:16)
[2018-05-10] MEDS: FAMOTIDINE 20 MG TAB PO SCH (20:18)
[2018-05-10] MEDS: SENNOSIDES/DOCUSATE SODIUM TAB PO SCH (20:19)
[2018-05-10] MEDS: ATENOLOL 50 MG TAB PO SCH (21:04)
[2018-05-11 06:14] LABS: PLATELET COUNT 220 10^3/uL (150-400)
[2018-05-11] MEDS: LEVOTHYROXINE 112 MCG TAB PO SCH (06:20)
[2018-05-11] MEDS: HYDROCODONE/APAP 5/325 TAB PO PRN ×3 (06:28→12:34)
--- NOTE | 2018-05-11 06:35 | GOP ---
[f rep st] OPERATIVE REPORT DATE OF OPERATION: 05/10/2018 SURGEON: Dany Keller MD DRY CELL ASSEMBLY MACHINE TENDER: Abdi Hudson PA-C ANESTHESIA: General. PREOPERATIVE DIAGNOSIS: 1. Bilateral outkx-xfswczw-eogy-left subdural hematomas, acute on chronic. 2. Midline shift with mass effect, headaches, nausea, vomiting. 3. Elevated intracranial pressure. POSTOPERATIVE DIAGNOSIS: 1. Bilateral cjriq-kobvvhq-oadi-left subdural hematomas, acute on chronic. 2. Midline shift with mass effect, headaches, nausea, vomiting. 3. Elevated intracranial pressure. PROCEDURE PERFORMED: Right frontal craniotomy with subdural hematoma evacuation and relief of elevated intracranial pressure. FINDINGS: per imaging ESTIMATED BLOOD LOSS: 5 mL. INDICATIONS: The patient is a very pleasant 78-year-old woman who is on anticoagulation for PEs and DVTs. She presented to the hospital with worsening headaches and had evidence of a qvfqs-xzzwxsh-olrr-left subdural hematoma, acute on chronic. The patient was monitored and was asymptomatic, but developed worsening headaches with progressive nausea and vomiting. Repeat imaging demonstrated that the subdurals had progressed slightly, greater on the right than the left, with 4 mm of midline shift. We discussed the risks, benefits, and treatment alternatives. We decided to proceed forth with surgery as described above. I discussed with the family preoperatively that she may require surgery on the left side as well if the left side blossomed after evacuation of the right side and given the fact that we did not fully reverse her anticoagulation preoperatively. The patient was given FFP to reverse her gently per the recommendations of the medical service given her high risk of PEs and DVTs. The patient and family understood the risks, benefits, and decided proceed forth with the surgical intervention described above. DESCRIPTION OF PROCEDURE: The patient was brought to the operating theater and underwent general endotracheal anesthesia without complications. She had Venodynes, GARTH hose, and appropriate lines placed by Anesthesia. She was bumped to the left side with a shoulder roll and bump to expose the right side of her scalp. We marked out an incision several centimeters off the midline in an anterior posterior direction. This area was prepped and draped in usual sterile surgical fashion. A time-out was completed per protocol, and the patient received antibiotics within 1 hour of incision. The incision was infiltrated with Marcaine with epinephrine. The incision was taken with the scalpel blade. Elias clips were applied to the soft tissues for hemostasis. The tissues were then held medially and laterally with a cerebellar retractor. The nurse head drill was utilized to make a small stuart hole at the posterior aspect of the scalp incision. We peeled the dura off from the underside of the calvarium. Using the foot plate, we turned a right frontal craniotomy bone flap which we passed off the field. We coagulated the dura in a cruciate manner. We then opened the dura with an 11 blade. She had an immediate egress of acute-appearing subdural hematoma under fairly high pressure. A red rubber catheter with gentle irrigation was placed in all directions until the fluid was clear. We placed a JW drain into the subdural space, tunneled it out through the subcutaneous tissues. We reapproximated the flaps of the dura with a 4-0 Nurolon suture. The bone flap was re-affixed to the overlying calvarium with the plating system. The wound was then closed in multiple layers including Vicryl sutures for the deep layers and a running Monocryl stitch for the skin. The patient's wounds were dressed sterilely. She is still asleep at the time of this dictation, but there were no complications and no noted problems. COMPLICATIONS: None. /[id number]/MODL MTDD
--- NOTE | 2018-05-11 08:01 | SOAPPROG ---
SOAP Progress Note Assessment/Plan: Assessment: 78 yo F sp right mini craniotomy for evacuation of SDH POD #1 Feeling "much better" Plan: Dr. Keller saw pt at 0623 AM JW is subdural drain. Keep in place Continue keppra cardene to keep SBP < 140 mmhg please call with neuro changes D/W Dr. Keller 05/11/18 08:01 Subjective: Sitting up in bed. States "I feel much better." N/V resolved Denies weakness or tingling or COLON Objective: Vital Signs Temp Pulse Resp BP Pulse Ox 36.6 C 55 L 20 122/61 H 92 05/11/18 07:33 05/11/18 07:33 05/11/18 07:33 05/11/18 07:33 05/11/18 07:33 Laboratory Results 05/11/18 06:12 05/11/18 06:00 05/10/18 05/11/18 05/12/18 05:59 05:59 05:59 Intake Total 50 1013 Output Total 960 Balance 50 53 PT 20.4 SEC (12.0-15.0) H 05/10/18 15:55 INR 1.84 (0.83-1.16) H 05/10/18 15:[address] 05/[address] Keller has reviewed it. Neuro: A+Ox4 LOPEZ, sens +LT follows commands no pronator drift no weakness no facial droop speech clear Dressing: CDI JW: 160ml ICD10 Worksheet Patient Problems: Problems Problem Status Onset Subdural hematoma Acute Pulmonary embolism Acute
[2018-05-11] MEDS: ATENOLOL 50 MG TAB PO SCH ×3 (08:23→22:57)
[2018-05-11] MEDS: levETIRAcetam 500 MG TAB PO SCH ×2 (08:23→21:02)
[2018-05-11] MEDS: FAMOTIDINE 20 MG TAB PO SCH ×2 (08:24→21:02)
[2018-05-11] MEDS: CITALOPRAM 20 MG TAB PO SCH ×2 (08:24→21:02)
[2018-05-11] MEDS: GABAPENTIN 300 MG CAP PO SCH ×2 (08:24→21:01)
[2018-05-11] MEDS: SENNOSIDES/DOCUSATE SODIUM TAB PO SCH ×2 (08:24→21:02)
--- NOTE | 2018-05-11 13:53 | HOSPPROG ---
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 s/p evacuation of R SDH Objective: Vital Signs Temp Pulse Resp BP Pulse Ox 36.4 C 56 L 15 118/70 93 05/11/18 12:00 05/11/18 12:00 05/11/18 12:00 05/11/18 12:00 05/11/18 12:00 Laboratory Results 05/11/18 06:12 05/11/18 06:00 05/10/18 05/11/18 05/12/18 05:59 05:59 05:59 Intake Total 50 1013 600 Output Total 960 145 Balance 50 53 455 PT 20.4 SEC (12.0-15.0) H 05/10/18 15:55 INR 1.84 (0.83-1.16) H 05/10/18 15:55 - Physical Exam Constitutional: no apparent distress, appears nourished Eyes: PERRL, anicteric sclera, other (disconjugate gaze is chronic) Ears, Nose, Mouth, Throat: moist mucous membranes, hearing normal Cardiovascular: regular rate and rhythym, no murmur, rub, or gallop Respiratory: no respiratory distress, no rales or rhonchi Gastrointestinal: normoactive bowel sounds, soft, non-tender abdomen Genitourinary: no bladder fullness, No bentley in urethra Skin: warm, normal color Musculoskeletal: full muscle strength Neurologic: AAOx3 ICD10 Worksheet Patient Problems: Problems Problem Status Onset Subdural hematoma Acute Pulmonary embolism Acute
[2018-05-11 14:57] LABS: INR 1.43 (0.83-1.16); PROTIME(PATIENT) 16.8 SEC (12.0-15.0)
--- NOTE | 2018-05-11 15:11 | ASMTCMCOM ---
CM Note CM Note Notes: Therapy recommending Inpatient Rehab, d/w Dr. Guerra, order placed. Spoke with Mel at [facility], alerted her of recommendations & order, she will hopefully start reviewing today. Patient does have [place] Medicare - will await Mel's recommendation before sending referral to [facility]. Attempted to notify patient of current plan - sleeping soundly. RN states suffers from Dementia - will follow-up with patient when able. Plan: TBD - potentially [facility]? Date Signed: 05/11/2018 03:10 PM Electronically Signed By:Jaqui Holloway RN
--- NOTE | 2018-05-11 16:26 | ASMTCMCOM ---
CM Note CM Note Notes: Received a all from Mel at [facility], at this time, patient does qualify for acute rehab. I have sent a referral to [facility] - Mel will be back on Monday to review again. Will await [place]'s authorization. CM will follow. Plan: Hopefully [facility] Date Signed: 05/11/2018 04:25 PM Electronically Signed By:Jaqui Holloway RN
[2018-05-11] MEDS: traMADol 50 MG TAB PO SCH (21:02)
[2018-05-12 04:34] LABS: INR 1.35 (0.83-1.16); PROTIME(PATIENT) 16.1 SEC (12.0-15.0)
[2018-05-12] MEDS: LEVOTHYROXINE 112 MCG TAB PO SCH (05:59)
[2018-05-12] MEDS: HYDROCODONE/APAP 5/325 TAB PO PRN ×3 (08:58→16:41)
[2018-05-12] MEDS: FAMOTIDINE 20 MG TAB PO SCH ×2 (08:58→20:24)
[2018-05-12] MEDS: SENNOSIDES/DOCUSATE SODIUM TAB PO SCH ×2 (08:58→20:24)
[2018-05-12] MEDS: GABAPENTIN 300 MG CAP PO SCH ×2 (08:59→20:23)
[2018-05-12] MEDS: levETIRAcetam 500 MG TAB PO SCH ×2 (08:59→20:24)
[2018-05-12] MEDS: CITALOPRAM 20 MG TAB PO SCH ×2 (09:00→20:23)
[2018-05-12] MEDS: ATENOLOL 50 MG TAB PO SCH ×2 (10:01→19:12)
--- NOTE | 2018-05-12 10:04 | NEUSURGPN ---
Date of Surgery: 05/10/18 Post Op Day: 2 Assessment/Plan: 78 yo F sp right mini craniotomy for evacuation of SDH POD #2 Feeling "much better" Plan: JW is subdural. Plan to keep in place for now, will get repeat head CT Monday prior to removal. Continue keppra cardene to keep SBP < 140 mmhg Step down, ok for Q4hr neuro checks Recommend holding all anticoagulation for 7 days, patient has subdural on left side that was not treated. Agree with IM for IVC placement. Discussed patient with Dr Keller Please call with questions/concerns Subjective: Doing well, mild incisional pain otherwise headaches gone Objective: AxOx 4 CN 2-12 grossly intact aside form OD lateral gaze which is chronic MAEx4 5/5 BUE, BLE JW patent Incision/dressing CDI Neuro Check Frequency: Q4hr Urinary Catheter in Place: No - Physician Discussed Patient with : Krishna Neurosurgery Physical Exam - Vitals, I&O, Labs I and O 05/11/18 05/12/18 05/13/18 05:59 05:59 06:59 Intake Total 1013 1450 Output Total 960 350 Balance 53 1100 Weight 72.5 kg Intake: Oral (ml) 450 1450 IV Intake (ml) 563 Output: Urine (ml) 800 Bedside Commode 800 Toilet 0 JW Drain Output (ml) 160 350 Right Head 160 350 Other: Intake Quantity Yes Sufficient Number of Voids Bedside Commode 1 Toilet 1 1 Number of Stools Bedside Commode 0 Number of Emesis 1 Occurrences Vital Signs Temp Pulse Resp BP Pulse Ox 36.5 C 54 L 22 H 108/50 L 91 L 05/12/18 04:00 05/12/18 08:18 05/12/18 08:18 05/12/18 08:18 05/12/18 08:18 Laboratory Results 05/11/18 06:12 05/11/18 06:00 ICD10 Worksheet Patient Problems: Problems Problem Status Onset Subdural hematoma Acute Pulmonary embolism Acute
[2018-05-12] MEDS ORDERED: IOPAMIDOL (ISOVUE-300) 100 ML BTL ONE (13:21)
[2018-05-12] MEDS ORDERED: LIDOCAINE 1% 300 MG/30 ML SDV ONE (13:21)
[2018-05-12] MEDS ORDERED: fentaNYL 100 MCG/2 ML INJ ONE (14:46)
[2018-05-12] MEDS ORDERED: MIDAZOLAM 2 MG/2 ML VIAL IVP PRN (14:48)
[2018-05-12] MEDS ORDERED: FLUMAZENIL 0.5 MG/5 ML MDV IVP PRN (14:48)
[2018-05-12] MEDS ORDERED: NALOXONE HCL 0.4 MG/ML INJ IVP PRN (14:48)
[2018-05-12] MEDS ORDERED: fentaNYL 100 MCG/2 ML INJ IVP PRN (14:48)
[2018-05-12] MEDS ORDERED: NS 1,000 ML IV SCH (15:00)
--- NOTE | 2018-05-12 15:49 | PDHPUP ---
History & Physical Update H&P update statement: This history and physical update is based on an assessment of the patient which was completed after admission or registration (within 24 hours), but prior to the surgery/procedure. DVT/PE with subdural hematoma, contraindication to anticoagulation H&P update: no change in patient's condition since H&P completed
--- NOTE | 2018-05-12 15:50 | PDRADPN ---
Radiology Procedure Note Date of Procedure: 05/12/18 Radiologist: Yobani Santos Anesthesia: Local (Specify) (Fentanyl and lidocaine only) Pre-op Diagnosis: DVT/PE Post-op Diagnosis: DVT/PE Indication: Subdural hematoma, contraindication to anticoagulation Procedure: IVC filter placement Finding(s): Infrarenal placement of IVC filter without complication. Inf/Abcess present in the surg proc area at time of surgery?: No
--- NOTE | 2018-05-12 16:41 | HOSPPROG ---
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 s/p IVC filter Objective: Vital Signs Temp Pulse Resp BP Pulse Ox 37.0 C 59 L 17 129/60 H 92 05/12/18 16:37 05/12/18 16:37 05/12/18 16:37 05/12/18 16:37 05/12/18 16:37 Laboratory Results 05/11/18 06:12 05/11/18 06:00 05/11/18 05/12/18 05/13/18 05:59 05:59 06:59 Intake Total 1013 1450 Output Total 960 350 80 Balance 53 1100 -80 PT 16.1 SEC (12.0-15.0) H 05/12/18 04:10 INR 1.35 (0.83-1.16) H 05/12/18 04:10 - Physical Exam Constitutional: no apparent distress, appears nourished Eyes: PERRL, anicteric sclera Ears, Nose, Mouth, Throat: moist mucous membranes, hearing normal Cardiovascular: regular rate and rhythym, no murmur, rub, or gallop Respiratory: no respiratory distress, no rales or rhonchi Gastrointestinal: normoactive bowel sounds Genitourinary: No bentley in urethra Skin: warm Musculoskeletal: full muscle strength ICD10 Worksheet Patient Problems: Problems Problem Status Onset Subdural hematoma Acute Pulmonary embolism Acute
--- NOTE | 2018-05-12 19:14 | GCON ---
[f rep st] CONSULTATION PULMONARY CRITICAL CARE CONSULTATION DATE OF CONSULTATION: 05/12/2018 REASON FOR CONSULTATION: Intensive care unit evaluation and management in a patient with acute-on-ch ronic subdural hematomas. She has a history of DVT and pulmonary embolism, on anticoagulation. HISTORY: The patient is a very pleasant 78-year-old who was admitted on 05/10, with headache. She was found to have bilateral acute on chronic subdural hematomas. She was seen by Neurosurgery. Seconda ry to increasing symptoms, she was taken to the operating room for evacuation of the larger right-amanda ed hematoma with a small right frontal craniotomy. She was returned to the intensive care unit in go od condition. She has been stable since. She was on Coumadin at the time of admission. This was st opped. INR was 2.3 on admission. The patient has a history of DVT and pulmonary embolism. Following her initial pulmonary embolism a number years ago, she was on anticoagulation for 1 year. After stopping this, she has had recurrent events including further pulmonary embolic episodes and documented DVT. These admissions were at [facility], and I do not have full details. Her last pulmonary embolic event was at [place]. I believe thi s was in 2017. She has been anticoagulated since. PAST MEDICAL HISTORY: Remarkable for DVT/pulmonary emboli as outlined above, mild interstitial lung disease, systemic hypertension, gastroesophageal reflux disease, fibromyalgia, chronic pain, restless legs syndrome, hypothyroidism. PAST SURGICAL HISTORY: Previous surgeries have included cervical surgery, hysterectomy, and vulvar r esection for a cancer. MEDICATIONS PRIOR TO ADMISSION: Included warfarin, gabapentin, furosemide, citalopram, atorvastatin, atenolol, ranitidine, potassium, levothyroxine, amlodipine, and tramadol. SOCIAL HISTORY: The patient is . She has lived above [place] in [facility] for many years. Tobacco and alcohol are negative. FAMILY HISTORY: Noncontributory. REVIEW OF SYSTEMS: Negative except as noted in the HPI and past medical history. She has no leg swe lling or leg symptoms on coming in, no shortness of breath, no chest pain. PHYSICAL EXAMINATION: GENERAL: Reveals a very pleasant woman who is in good spirits. VITAL SIGNS: Blood pressure is 133/67, heart rate 55 with sinus rhythm on the monitor. Respiratory rate is 18. Oxygen is in place by nasal cannula at 4 L. She is afebrile. HEENT: Unremarkable for lymphadenopat hy or thyromegaly. There is no jugular venous distention. CHEST: Clear bilaterally. Breath sounds are somewhat diminished. There are no rales, no pleural rub. The heart tones are distant. The rhy thm is regular, but bradycardic. There are no significant murmurs, no obvious gallop. P2 appears no rmal. ABDOMEN: Soft, nontender. Bowel sounds are present. EXTREMITIES: Unremarkable for edema, c ords, or tenderness. NEUROLOGIC: Examination is within normal limits. DATABASE: White blood cell count is 10,000, hematocrit 42, platelets 220,000. INR today is 1.35 wit h a PTT of 16.1. Basic metabolic panel is within normal limits. RADIOLOGIC STUDIES: Lower extremity venous Doppler ultrasound bilaterally is within normal limits. There is no evidence of deep venous thrombosis. Most recent head CT shows a right subdural drain in place with evacuation of the previously seen righ t subdural hematoma. A small amount of air is present related to the drain. There is no further rig ht to left shift. A moderate-sized left subdural hematoma remains present. ASSESSMENT: 1. Wbexu-kh-mnyrzuh subdural hematomas. The right has been evacuated surgically. She is doing well clinically. The left-sided subdural may or may not need to be drained as well. This will be left u p to Neurosurgery. Putting her back on anticoagulation in the foreseeable future is contraindicated. 2. 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 Anticoagulation will be contraindicated for some time. An inferior vena cava filter is indicated. There is no evidence o f deep venous thrombosis at this time. Hopefully, prophylactic low-dose anticoagulation can be resta rted after a week or so. Perhaps, she would be a candidate for secondary prophylaxis with aspirin at some point as well. 3. History of other medical problems as outlined in the past medical history. These are stable. Andrea martinez is on her pre-admission medications for these problems. 4. Gastrointestinal prophylaxis: On famotidine. 5. Deep venous thrombosis prophylaxis: As discussed above. Sequential compression devices and ambu lation are indicated. PLAN AND RECOMMENDATIONS: The patient will be kept in the intensive care unit on step-down status fo r now. An IVC filter will be requested. This will be placed by Interventional Radiology. SCDs will be continued. Patient will be ambulated several times per day. Neurologic status will be followed. Neurosurgery will continue to follow. All of the above was discussed with the patient, nursing, hospitalist, Neurosurgery, and the [facility] idisciplinary team. /[id number]/MODL
[2018-05-12] MEDS: traMADol 50 MG TAB PO SCH (20:23)
[2018-05-13] MEDS: LEVOTHYROXINE 112 MCG TAB PO SCH (06:42)
[2018-05-13] MEDS: CITALOPRAM 20 MG TAB PO SCH ×2 (09:08→21:30)
[2018-05-13] MEDS: HYDROCODONE/APAP 5/325 TAB PO PRN ×3 (09:08→23:18)
[2018-05-13] MEDS: SENNOSIDES/DOCUSATE SODIUM TAB PO SCH ×2 (09:09→21:28)
[2018-05-13] MEDS: GABAPENTIN 300 MG CAP PO SCH ×2 (09:10→21:27)
[2018-05-13] MEDS: FAMOTIDINE 20 MG TAB PO SCH ×2 (09:10→21:29)
[2018-05-13] MEDS: levETIRAcetam 500 MG TAB PO SCH ×2 (09:10→21:28)
--- NOTE | 2018-05-13 09:46 | NEUSURGPN ---
Date of Surgery: 05/17/18 Post Op Day: -4 Assessment/Plan: 78 yo F sp right mini craniotomy for evacuation of SDH POD #3 Plan: JW is subdural. Plan to keep in place for now, will get repeat head CT Monday then will consider removal Continue keppra cardene to keep SBP < 140 mmhg Step down, Q4hr neuro checks, may transfer to floor if ok with subdural drain Recommend holding all anticoagulation for 7 days, patient has subdural on left side that was not treated. Patient had IVC filter placed yesterday Discussed patient with Dr Keller Please call with questions/concerns Subjective: sitting in chair eating breakfast, no complaints Objective: AxOx3 CN2-12 grossly intact MAEx4 5/5 BUE, BLE Incision/dressing CDI JW patent Neuro Check Frequency: per routine Urinary Catheter in Place: No - Physician Discussed Patient with : Krishna Neurosurgery Physical Exam - Vitals, I&O, Labs I and O 05/12/18 05/13/18 05/14/18 04:59 05:59 05:59 Intake Total Output Total Balance Intake: Oral (ml) IV Intake (ml) Output: Urine (ml) Bedside Commode JW Drain Output (ml) Right Head Other: Intake Quantity Sufficient Number of Voids Bedside Commode Toilet Number of Stools Bedside Commode Vital Signs Temp Pulse Resp BP Pulse Ox 36.6 C 53 L 13 131/61 H 96 05/13/18 08:00 05/13/18 08:00 05/13/18 08:00 05/13/18 08:00 05/13/18 08:00 Laboratory Results 05/11/18 06:12 05/11/18 06:00 ICD10 Worksheet Patient Problems: Problems Problem Status Onset Subdural hematoma Acute Pulmonary embolism Acute
[2018-05-13] MEDS: ATENOLOL 50 MG TAB PO SCH ×2 (11:04→21:29)
--- NOTE | 2018-05-13 14:35 | PDINTPN ---
Clinical Genetics Laboratory Chief Progress Note Assessment/Plan: Assessment: Subdural hematoma: Bilateral, acute on chronic. Status post craniotomy and evacuation on the right. Drain in place, on Keppra History of recurrent pulmonary emboli, on chronic anticoagulation on admission. Anticoagulation contraindicated. IVC filter placed yesterday. No evidence of DVT in the lower extremities by ultrasound. History of hypertension, hyperlipidemia, reflux, hypothyroidism, etc. Stable. On her usual outpatient medications. Prophylaxis: Famotidine, SCDs/ambulation. Hypoxemia: Mild. Probably secondary to atelectasis/bedrest. No acute pulmonary pathology identified. Will continue to encourage IS. Plan: Continue present care. Can transfer to a medical-surgical status. For repeat CT scan of the head tomorrow per neuro surgery. Mobilize. Continue IS. I will sign off at this point. Please let us know if further pulmonary involvement is needed. 25 min of critical care time spent directly with the patient. Discussed with the patient's , hospitalist, multi disciplinary team. Subjective: Doing well, no complaints. Denies shortness of breath or chest pain. No leg swelling. Objective: Vital Signs Temp Pulse Resp BP Pulse Ox 36.6 C 58 L 16 133/62 H 98 05/13/18 13:40 05/13/18 13:40 05/13/18 13:40 05/13/18 13:40 05/13/18 13:40 Laboratory Results 05/11/18 06:12 05/11/18 06:00 05/12/18 05/13/18 05/14/18 04:59 05:59 05:59 Intake Total 220 Output Total 60 Balance 160 PT 16.1 SEC (12.0-15.0) H 05/12/18 04:10 INR 1.35 (0.83-1.16) H 05/12/18 04:10 CXR: Mild basilar atelectasis. No focal lung disease Physical Exam - Physical Exam General Appearance: alert, no apparent distress EENT: other (Nasal cannula oxygen is in place) Neck: normal inspection (No JVD) Respiratory: lungs clear, decreased breath sounds (At bases), No rales, No rhonchi, No wheezing Cardiac/Chest: bradycardia (Sinus) Abdomen: normal bowel sounds, non-tender, soft Skin: normal color, warm/dry Extremities: pedal edema (Trace) Neuro/Psych: no motor/sensory deficits, No cognition abnormalities ICD10 Worksheet Patient Problems: Problems Problem Status Onset Pulmonary embolism Acute Subdural hematoma Acute
[2018-05-13] MEDS: traMADol 50 MG TAB PO SCH (21:28)
--- NOTE | 2018-05-13 23:43 | HOSPPROG ---
Hospitalist Progress Note Assessment/Plan: 78 yo F w h/o recurrent VTE and falls here w b/l SDH SDH:s/p evacuation on POD #3 acute on chronic, per neurosurgery falls plus anticoag BP management: ok to stop cardene Drip. Cont Amlodipine CT on Monday, JW drain in place VTE: has had at least two episodes of non life threatening PE's SDH requiring surgical evac is a severe bleeding complication there is no risk free alternative in this situation. continue to hold anticoag for now s/p IVC filter per neurosurgery, 7 days off anticoag Hypoxemia: possible to Atelectasis. Exam reassuring. Obtain CXR for further evaluation disconjugate gaze: chronic pain: well controlled dispo :ok to transfer out of ICU Subjective: BP ok. no complaints. denies cough, sob. Objective: Vital Signs Temp Pulse Resp BP Pulse Ox 37.3 C 65 16 134/63 H 94 05/13/18 20:00 05/13/18 21:29 05/13/18 20:00 05/13/18 21:29 05/13/18 20:00 Laboratory Results 05/11/18 06:12 05/11/18 06:00 05/12/18 05/13/18 05/14/18 04:59 05:59 05:59 Intake Total 220 Output Total 90 Balance 130 PT 16.1 SEC (12.0-15.0) H 05/12/18 04:10 INR 1.35 (0.83-1.16) H 05/12/18 04:10 - Physical Exam Constitutional: no apparent distress Eyes: PERRL Ears, Nose, Mouth, Throat: moist mucous membranes, hearing normal Cardiovascular: regular rate and rhythym Respiratory: no respiratory distress, no rales or rhonchi, clear to auscultation Gastrointestinal: normoactive bowel sounds Skin: warm Neurologic: AAOx3 Psychiatric: interacting appropriately, not anxious, not encephalopathic Lymph, Heme, Immunologic: No petechiae ICD10 Worksheet Patient Problems: Problems Problem Status Onset Subdural hematoma Acute Pulmonary embolism Acute
[2018-05-14] MEDS: LEVOTHYROXINE 112 MCG TAB PO SCH (05:21)
[2018-05-14] MEDS: HYDROCODONE/APAP 5/325 TAB PO PRN ×3 (07:58→17:25)
[2018-05-14] MEDS: ATENOLOL 50 MG TAB PO SCH ×2 (08:56→21:34)
[2018-05-14] MEDS: FAMOTIDINE 20 MG TAB PO SCH ×2 (08:59→21:35)
[2018-05-14] MEDS: SENNOSIDES/DOCUSATE SODIUM TAB PO SCH ×2 (08:59→21:36)
[2018-05-14] MEDS: levETIRAcetam 500 MG TAB PO SCH ×2 (08:59→21:36)
[2018-05-14] MEDS: CITALOPRAM 20 MG TAB PO SCH ×2 (08:59→21:35)
[2018-05-14] MEDS: GABAPENTIN 300 MG CAP PO SCH ×2 (09:00→21:36)
--- NOTE | 2018-05-14 10:08 | NEUSURGPN ---
Assessment/Plan: 78 yo F sp right mini craniotomy for evacuation of SDH due to brain compression and shift. POD #4 Plan: Repeat HCT this am with slight increase in left SDH. Reviewed with Krishna, will monitor clinically and remove right sided SDH Will remove right SD today Continue keppra SBP < 140 mmhg Step down, Q4hr neuro checks, may transfer to floor if ok with subdural drain Recommend holding all anticoagulation for 7 days, patient has subdural on left side that was not treated. Patient has IVC filter Please call with questions/concerns Subjective: Mild headache, Denies any new weakness Objective: AxOx3 CN2-12 grossly intact, with right eye dysconjugate gaze MAEx4 5/5 BUE, BLE Incision/dressing CDI JW patent - Physician Discussed Patient with Dr.: Kiara Neurosurgery Physical Exam - Vitals, I&O, Labs I and O 05/13/18 05/14/18 05/15/18 05:59 05:59 05:59 Intake Total 920 Output Total 150 50 Balance 770 -50 Intake: Oral (ml) 920 Output: JW Drain Output (ml) 150 50 Right Head 150 50 Other: Intake Quantity Yes Sufficient Number of Voids Bedside Commode Toilet 1 1 Number of Stools Bedside Commode Vital Signs Temp Pulse Resp BP Pulse Ox 36.7 C 60 16 135/61 H 96 05/14/18 07:33 05/14/18 08:56 05/14/18 07:33 05/14/18 08:56 05/14/18 07:33 Laboratory Results 05/11/18 06:12 05/11/18 06:00 ICD10 Worksheet Patient Problems: Problems Problem Status Onset Subdural hematoma Acute Pulmonary embolism Acute
--- NOTE | 2018-05-14 13:14 | HOSPPROG ---
Hospitalist Progress Note Assessment/Plan: 78 yo F w h/o recurrent VTE on coumadin admitted after fall w b/l SDH SDH: s/p evacuation on POD #4 - acute on chronic, per neurosurgery Cont amlodipine, at goal SBP <[address] today with slightl progression of left SDH, neurosurg to remove drain on right Cont Keppra VTE: has had at least two episodes of non life threatening PE's s/p IVC filter per neurosurgery, 7 days off anticoag Hypoxemia: 13 LPM --> 2 LPM today. Likely had some post-anesthesia component along with atelectasis. Also note h/o ILD. CXR yest pers reviewed/interp- +atelectasis changes, add IS disconjugate gaze: chronic chronic pain: well controlled, cont home meds Hypothyroidism: cont home levothyroxine dispo : cont inpt, PT/OT, to inpt rehab likely 1-2 days Subjective: Pt feels ok. No headache. Had her subdural drain removed. No CP or SOB. No cough. No fevers. Eating fairly well. Objective: Vital Signs Temp Pulse Resp BP Pulse Ox 36.7 C 52 L 17 115/66 90 L 05/14/18 11:14 05/14/18 11:14 05/14/18 11:14 05/14/18 11:14 05/14/18 11:14 Laboratory Results 05/11/18 06:12 05/11/18 06:00 05/13/18 05/14/18 05/15/18 05:59 05:59 05:59 Intake Total 920 Output Total 150 50 Balance 770 -50 PT 16.1 SEC (12.0-15.0) H 05/12/18 04:10 INR 1.35 (0.83-1.16) H 05/12/18 04:10 - Physical Exam Constitutional: no apparent distress Eyes: PERRL, other (disconjugate gaze, chronic) Ears, Nose, Mouth, Throat: moist mucous membranes Cardiovascular: regular rate and rhythym, bradycardia Respiratory: no respiratory distress, clear to auscultation Gastrointestinal: normoactive bowel sounds, soft, non-tender abdomen Skin: warm Musculoskeletal: full muscle strength Neurologic: AAOx3 Psychiatric: interacting appropriately ICD10 Worksheet Patient Problems: Problems Problem Status Onset Subdural hematoma Acute Pulmonary embolism Acute
--- NOTE | 2018-05-14 16:06 | ASMTCMCOM ---
CM Note CM Note Notes: [facility] seems to not want to approve inpatient rehab, today asked for MD number for consult and they were provided Hospitalist Ginny's number. Spoke with pt and this afternoon, updating them we were waiting to see what [facility] will approve. D/c plan: TBD based on what [facility] will approve Date Signed: 05/14/2018 04:05 PM Electronically Signed By:LATOSHA Hill
[2018-05-14] MEDS: MAGNESIUM HYDROXIDE 30 ML UDCUP PO PRN (17:41)
[2018-05-14] MEDS: traMADol 50 MG TAB PO SCH (21:36)
[2018-05-15] MEDS: LEVOTHYROXINE 112 MCG TAB PO SCH (05:30)
[2018-05-15] MEDS: MAGNESIUM HYDROXIDE 30 ML UDCUP PO PRN (05:37)
[2018-05-15] MEDS: ONDANSETRON DISINTEGRATING 4 MG TAB PO PRN (08:51)
[2018-05-15] MEDS: ATENOLOL 50 MG TAB PO SCH ×2 (08:53→20:41)
[2018-05-15] MEDS: levETIRAcetam 500 MG TAB PO SCH ×2 (08:54→20:42)
[2018-05-15] MEDS: SENNOSIDES/DOCUSATE SODIUM TAB PO SCH ×2 (08:54→20:42)
[2018-05-15] MEDS: CITALOPRAM 20 MG TAB PO SCH ×2 (08:54→20:41)
[2018-05-15] MEDS: FAMOTIDINE 20 MG TAB PO SCH ×2 (08:54→20:42)
[2018-05-15] MEDS: GABAPENTIN 300 MG CAP PO SCH ×2 (08:54→20:42)
--- NOTE | 2018-05-15 10:53 | NEUSURGPN ---
Assessment/Plan: 78 yo F sp right mini craniotomy for evacuation of SDH due to brain compression and shift. POD #5 Examine stable. Plan: Repeat HCT 3/11 with slight increase in left SDH. Reviewed with Krishna, will monitor clinically and remove right sided SDH Continue keppra SBP < 140 mmhg Step down, Q4hr neuro checks, may transfer to floor if ok with subdural drain Recommend holding all anticoagulation until follow up in 2-3weeks. Patient has subdural on left side that was not treated and has slightly enlarged. She should obtain HCT prior to that follow up. Patient has IVC filter Please call with questions/concerns Okay to transfer to rehab. Will s/o off at this time given patient stability Discussed with Dr. Keller Subjective: Mild stable headache. Denies any weakness Objective: AxOx3 CN2-12 grossly intact, with right eye dysconjugate gaze MAEx4 5/5 BUE, BLE Incision/dressing CDI - Physician Discussed Patient with Dr.: Keller Neurosurgery Physical Exam - Vitals, I&O, Labs I and O 05/14/18 05/15/18 05/16/18 05:59 05:59 05:59 Intake Total 920 400 Output Total 150 50 Balance 770 350 Intake: Oral (ml) 920 400 Output: JW Drain Output (ml) 150 50 Right Head 150 50 Other: Intake Quantity Yes Sufficient Number of Voids Bedside Commode 1 1 Toilet 1 1 Number of Stools Toilet 1 Vital Signs Temp Pulse Resp BP Pulse Ox 36.9 C 61 15 142/59 H 97 05/15/18 07:24 05/15/18 08:53 05/15/18 07:24 05/15/18 08:53 05/15/18 07:24 Laboratory Results 05/11/18 06:12 05/11/18 06:00 ICD10 Worksheet Patient Problems: Problems Problem Status Onset Subdural hematoma Acute Pulmonary embolism Acute
[2018-05-15] MEDS ORDERED: hydrALAZINE 20 MG/ML VIAL IVP PRN (13:47)
--- NOTE | 2018-05-15 14:52 | ASMTCMCOM ---
CM Note CM Note Notes: Pt denied inpatient rehab auth by [facility] but authorized for SNF. [facility] auth#[id number]. Pt prefers [facility] because she and live [place] of [place], however, only [facility] is in network and they have accepted. Message left for notifying him of [facility] and have not heard back from him. Pt likely to discharge tomorrow. [facility] notified. CM to follow. D/C Plan: [facility] pending approval from family. Date Signed: 05/15/2018 02:51 PM Electronically Signed By:Debora Lopez
[2018-05-15] MEDS: ACETAMINOPHEN 325 MG TAB PO SCH ×2 (14:55→20:38)
--- NOTE | 2018-05-15 14:58 | HOSPPROG ---
Hospitalist Progress Note Assessment/Plan: 78 yo F w h/o recurrent VTE on coumadin admitted after fall w b/l SDH SDH: s/p evacuation POD #6 - acute on chronic, per neurosurgery Cont amlodipine, at goal SBP <[address] with slight progression of left SDH, neurosurg removed drain, stable Cont Keppra per neurosurgery, remain off AC for 2 weeks and f/u with them at that time, head CT prior to that appt VTE: has had at least two episodes of non life threatening PE's s/p IVC filter AC held as above Hypoxemia: 13 LPM --> 2 LPM today. Likely had some post-anesthesia component along with atelectasis. Also note h/o ILD. CXR yest pers reviewed/interp- +atelectasis changes, add IS disconjugate gaze: chronic chronic pain: well controlled, cont home meds Hypothyroidism: cont home levothyroxine dispo : cont inpt, PT/OT, [facility] declined inpt rehab, CM working on SNF options Subjective: Pt reports headache this am, got better with tylenol. No focal weakness or vision changes. Currently pain free. She is weak, unstable on her feet, interested in rehab. Objective: Vital Signs Temp Pulse Resp BP Pulse Ox 37.2 C 61 16 148/80 H 93 05/15/18 11:00 05/15/18 11:00 05/15/18 11:00 05/15/18 11:00 05/15/18 11:00 Laboratory Results 05/11/18 06:12 05/11/18 06:00 05/14/18 05/15/18 05/16/18 05:59 05:59 05:59 Intake Total 920 400 Output Total 150 50 Balance 770 350 PT 16.1 SEC (12.0-15.0) H 05/12/18 04:10 INR 1.35 (0.83-1.16) H 05/12/18 04:10 - Physical Exam Constitutional: no apparent distress Eyes: PERRL, other (disconjugate gaze, chronic) Ears, Nose, Mouth, Throat: moist mucous membranes Cardiovascular: regular rate and rhythym Respiratory: no respiratory distress, clear to auscultation Gastrointestinal: normoactive bowel sounds, soft, non-tender abdomen Skin: warm Musculoskeletal: full muscle strength Neurologic: AAOx3 Psychiatric: interacting appropriately ICD10 Worksheet Patient Problems: Problems Problem Status Onset Subdural hematoma Acute Pulmonary embolism Acute
[2018-05-15] MEDS: traMADol 50 MG TAB PO SCH (20:42)
[2018-05-16] MEDS: ACETAMINOPHEN 325 MG TAB PO SCH ×3 (05:35→22:29)
[2018-05-16] MEDS: LEVOTHYROXINE 112 MCG TAB PO SCH (05:35)
--- NOTE | 2018-05-16 07:52 | SOAPPROG ---
SOAP Progress Note Assessment/Plan: Assessment: 78 yo F POD#6 right mini craniotomy for evacuation of SDH Plan: neuro: stable repeat head CT 05/14 with slight enlargement of left SDH, improved right SDH, on keppra goal of SBP < 140 mmhg hx of PE, IVC filter in place, holding anticoagulation for now ok to discharge to SNF if ok with Medicine, follow up with DR Keller in 2 weeks with repeat head CT w/o contrast please call with neuro changes discussed with Dr Keller 05/10/18 19:41 05/16/18 07:50 Subjective: no headaches, no N/V. No weakness. Objective: Vital Signs Temp Pulse Resp BP Pulse Ox 36.6 C 46 L 16 116/54 L 93 05/16/18 03:53 05/16/18 03:53 05/16/18 03:53 05/16/18 03:53 05/16/18 03:53 Laboratory Results 05/11/18 06:12 05/11/18 06:00 05/15/18 05/16/18 05/17/18 05:59 05:59 05:59 Intake Total 400 1694 Output Total 50 Balance 350 1694 PT 16.1 SEC (12.0-15.0) H 05/12/18 04:10 INR 1.35 (0.83-1.16) H 05/12/18 04:10 AAOx4, +FC PERRL, EOMI, no facial droop 5/5 + light touch C/D/I ICD10 Worksheet Patient Problems: Problems Problem Status Onset Subdural hematoma Acute Pulmonary embolism Acute
[2018-05-16] MEDS: HYDROCODONE/APAP 5/325 TAB PO PRN ×3 (08:58→22:30)
[2018-05-16] MEDS: GABAPENTIN 300 MG CAP PO SCH ×2 (08:59→21:22)
[2018-05-16] MEDS: levETIRAcetam 500 MG TAB PO SCH ×2 (08:59→21:23)
[2018-05-16] MEDS: FAMOTIDINE 20 MG TAB PO SCH ×2 (09:00→21:24)
[2018-05-16] MEDS: CITALOPRAM 20 MG TAB PO SCH ×2 (09:00→21:24)
[2018-05-16] MEDS: SENNOSIDES/DOCUSATE SODIUM TAB PO SCH ×2 (09:01→21:22)
[2018-05-16] MEDS: ATENOLOL 50 MG TAB PO SCH (10:37)
--- NOTE | 2018-05-16 20:25 | HOSPPROG ---
Hospitalist Progress Note Assessment/Plan: 78 yo F w h/o recurrent VTE on coumadin admitted after fall w b/l SDH SDH: s/p evacuation POD #7 - acute on chronic, per neurosurgery Cont amlodipine, at goal SBP <[address] with slight progression of left SDH, neurosurg removed drain, stable Cont Keppra per neurosurgery, remain off AC for 2 weeks and f/u with them at that time, head CT prior to that appt discussed care plan with Neurosug VTE: has had at least two episodes of non life threatening PE's s/p IVC filter AC held as above Hypoxemia: RA today. Likely had some post-anesthesia component along with atelectasis. Also note h/o ILD. - IS/ambulation disconjugate gaze: chronic chronic pain: well controlled, cont home meds Hypothyroidism: cont home levothyroxine Bradycardia -decrease B krystle -restart home diuretic -watch BP closely PCP: Carlos Ellison at [facility] in [place] dispo:[facility] declined inpt rehab, plan to DC to SNF [facility]-unable to today bc of lack of transport/weather Subjective: Feels well, had a shower, no n/v/d/cp/sob. No COLON. Objective: Vital Signs Temp Pulse Resp BP Pulse Ox 97.7 F 555 H 20 133/64 H 97 05/16/18 07:56 05/16/18 10:37 05/16/18 07:56 05/16/18 10:37 05/16/18 07:56 Laboratory Results 05/11/18 06:12 05/11/18 06:00 05/15/18 05/16/18 05/17/18 11:59 11:59 11:59 Intake Total 400 1694 Balance 400 1694 PT 16.1 SEC (12.0-15.0) H 05/12/18 04:10 INR 1.35 (0.83-1.16) H 05/12/18 04:10 - Pending Discharge Pending Discharge Within 24 Hours: Yes Pending Discharge Date: 05/17/18 Pending Discharge Time: 11:00 ICD10 Worksheet Patient Problems: Problems Problem Status Onset Subdural hematoma Acute Pulmonary embolism Acute
[2018-05-16] MEDS: ATENOLOL 25 MG TAB PO SCH (21:23)
[2018-05-16] MEDS: traMADol 50 MG TAB PO SCH (21:25)
[2018-05-16 21:30] LABS: PLATELET COUNT 248 10^3/uL (150-400)
[2018-05-17] MEDS: ACETAMINOPHEN 325 MG TAB PO SCH ×2 (06:01→14:57)
[2018-05-17] MEDS: LEVOTHYROXINE 112 MCG TAB PO SCH (06:01)
--- NOTE | 2018-05-17 08:15 | NEUSURGPN ---
Date of Surgery: 05/10/18 Post Op Day: 7 Assessment/Plan: 78 yo F sp right mini craniotomy for evacuation of SDH POD #7 Plan: neuro: stable repeat head CT 3/ with slight enlargement of left SDH, improved right SDH, on keppra, will continue for 7 more days hx of PE, IVC filter in place, continue holding anticoagulation for now ok to discharge to SNF from neurosurgery standpoint, follow up with Dr Keller in 2 weeks with repeat head CT w/o contrast please call with neuro changes discussed with Dr Keller Subjective: Doing well, denies headache except for in the evening Objective: AxOx4 PERRLA EOMI CN2-12 grossly intact 5/5 BUE, BLE Incision CDI Neuro Check Frequency: per routine Urinary Catheter in Place: No - Physician Discussed Patient with : Krishna Neurosurgery Physical Exam - Vitals, I&O, Labs I and O 05/16/18 05/17/18 05/18/18 05:59 05:59 05:59 Intake Total 1694 Balance 1694 Intake: Oral (ml) 1694 Other: Intake Quantity Yes Sufficient Number of Voids Bedside Commode 1 Toilet 1 1 Number of Stools Bedside Commode 1 Vital Signs Temp Pulse Resp BP Pulse Ox 36.8 C 52 L 13 122/4 H 92 05/17/18 07:43 05/17/18 07:43 05/17/18 07:43 05/17/18 07:43 05/17/18 07:43 Laboratory Results 05/16/18 21:18 05/16/18 21:18 ICD10 Worksheet Patient Problems: Problems Problem Status Onset Subdural hematoma Acute Pulmonary embolism Acute
[2018-05-17] MEDS ORDERED: FUROSEMIDE 20 MG TAB PO SCH (09:00)
[2018-05-17] MEDS ORDERED: ATORVASTATIN CALCIUM 10 MG TAB PO SCH (09:00)
[2018-05-17] MEDS: GABAPENTIN 300 MG CAP PO SCH (09:33)
[2018-05-17] MEDS: levETIRAcetam 500 MG TAB PO SCH (09:34)
[2018-05-17] MEDS: FAMOTIDINE 20 MG TAB PO SCH (09:35)
[2018-05-17] MEDS: CITALOPRAM 20 MG TAB PO SCH (09:35)
[2018-05-17] MEDS: HYDROCODONE/APAP 5/325 TAB PO PRN ×2 (09:36→10:42)
[2018-05-17] MEDS: SENNOSIDES/DOCUSATE SODIUM TAB PO SCH (09:37)
[2018-05-17] MEDS: ATENOLOL 25 MG TAB PO SCH (09:38)
--- NOTE | 2018-05-17 10:57 | ASMTLACE ---
ZUNILDAE Length of stay for Answers: 4-6 days current admission Acuity / Level of Answers: Yes Care: Did the patient have an inpatient admission? Comorbidities - select Answers: Opioid dependence all that apply / Chronic pain Other Notes: HTN; PE; DVT # of Emergency department Answers: 1-2 visits in the last 6 months Social determinants Answers: Mental health diagnosis (anxiety, depression, pers onality disorders, etc.) Score: 16 Date Signed: 05/17/2018 10:56 AM Electronically Signed By:Muriel Daly RN
--- NOTE | 2018-05-17 11:07 | PDIAF ---
- Diagnosis Code Status: Do Not Resuscitate - Medication Management Customer Acquisition Manager Antibiotics: m/a Additional Medication Instructions: was on 50 mg atenolol BID, decreased to 25 mg bid bc of bradycardia, watch BP and HR bc needs to keep <140 sys with subdural. Also, was on coumadin, stopped bc of bleed Discharge Medications: electronically signed and located in the Home Medication List. PICC Care - Routine: N/A - Orders Isolation Type: None Diet Recommendation: no restrictions on diet Diet Texture: Regular Texture Diet Weigh Patient: weekly Wound Care Instructions: has scalp wound- russ removed during hospitalization Activity/Weight Bearing Restrictions: per pt/ot recommendations Additional Instructions: follow up with Dr Keller in 2 weeks with repeat head CT w/o contrast, to schedule appointment discharge with craniotomy post op instructions from [email or web address] remove remaining staple prior to discharge - Follow Up Care Current Providers and Referrals: HERBIE HOUGH MD [Other] - 3 days of d/c SNF/Rehab Dany Keller MD [Medical Doctor] - follow up in 2 weeks
--- NOTE | 2018-05-17 11:18 | ASMTCMCOM ---
CM Note CM Note Notes: Spoke w/Riccardo at , pt accepted but [facility] has . CM spoke with Mikhail, and she states that they need to review since it has been 48 hrs. 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 Referral sent. Plan: [facility] Date Signed: 05/17/2018 11:18 AM Electronically Signed By:Muriel Daly RN
[2018-05-17 11:45] VITALS: BP 129/60
--- NOTE | 2018-05-17 12:15 | GDS ---
[f rep st] DISCHARGE SUMMARY SERVICE: [facility] CONSULTATIONS: Neurosurgery, Pulmonary, Tool Filer. HISTORY AND PHYSICAL: Please see previously dictated note by Dr. Whitaker. ADMISSION DIAGNOSES: 1. Bilateral subdural hematomas, acute on chronic. 2. History of pulmonary embolus, deep vein thrombosis with chronic Coumadin anticoagulation. 3. Interstitial lung disease. 4. Hypothyroidism. 5. Fibromyalgia. 6. Depression. 7. Chronic pain. 8. Restless legs syndrome. 9. Gastroesophageal reflux disease. 10. Hypertension. DISCHARGE DIAGNOSES: 1. Bilateral subdural hematomas, acute on chronic, status post mini craniotomy evacuation on 019. 2. History of pulmonary embolus, deep vein thrombosis with chronic Coumadin anticoagulation. Status post inferior vena cava placement on 05/12/2018. 3. Interstitial lung disease. 4. Hypothyroidism. 5. Fibromyalgia. 6. Depression. 7. Chronic pain. 8. Restless legs syndrome. 9. Gastroesophageal reflux disease. 10. Hypertension. 11. Hypoxemia, intermittent throughout the stay, but resolved at time of discharge. 12. Bradycardia, asymptomatic. PROCEDURES: Multiple head CTs, mini craniotomy performed on 05/10/2018, by Dr. Keller. Right fronta l craniotomy with subdural hematoma evacuation. Bilateral lower extremity Dopplers on 05/11/2018, sh owing no DVTs on either side. Small amount of inguinal fluid collection on the left-hand side. IVC filter placement on 05/12/2018, along with an IVC venogram. HOSPITAL COURSE: The patient was brought to the emergency department on 05/10/2018, after having hea dache and dizziness since bumping her head on a cabinet a few days prior. She had a head CT in the e mergency department and is found to have worsening bilateral subdural hematomas, which looked acute o n chronic. She was on chronic Coumadin, because of recurrent PEs and DVTs. Coumadin was held and Ne urosurgery was consulted. Dr. Keller brought her to the surgical suite for a subdural evacuation as described above. Postoperatively, she was transferred to the intensive care unit. She had an IVC fi lter placed on 05/12/2018. Blood pressure was closely watched to ensure it did not increase greater than 140 systolic. She was started on Keppra by Neurosurgery, which has been recommended to continue until she is seen in followup by Neurosurgery in 2 weeks after discharge. She is also recommended t o remain off anticoagulation until that appointment. Pain was managed well. While she was in the in tensive care unit, we requested pulmonary intensive care consult, because of her history of recurrent DVTs. Dr. Martin Shaffer recommended trying to start a low-dose anticoagulation at some point when he r neurological status is stable. This needs to be followed up after discharge. She was transferred to a med/surg unit on May 13, and continued to recuperate well. She has been ambulating with the a ssistance of PT, OT. They have recommended further care at a SNF facility to ensure stability and as sess for safety to return home. She has had bradycardia into 40s, but day of discharge her pulse was in the upper 50s. Change was made to her chronic beta-krystle medication, which she was taking aten olol 50 mg twice a day to currently taking 25 mg twice a day. Close attention should be paid to her heart rate and blood pressure parameters. She was asymptomatic from a heart rate standpoint. It is very important that she have blood pressures maintained under systolic of 140 per Neurosurgery. She has required intermittent O2 by nasal cannula, but does not use O2 at baseline, and on day of dischar ge was 92% on room air. She was afebrile throughout her stay. She is going to be discharged to [facility] for ongoing rehabilitation. She should follow up with her primary care provider shereen Ellison the [facility] in [place] a few days after discharge from this facility. Dr. Keller has reques landen that she follow up at their office in 2 weeks, and has a CT scan prior to that appointment, so at he can review at the appointment. She had russ in place from the mini craniotomy, and these we re all removed prior to her discharge. She should continue routine wound care at [facility]. MEDICATIONS: Please see discharge medications list. Greater than 30 minutes was spent in coordination of care and discharge planning. Copy requested to: PCP at [facility] /[id number]/MODL
--- NOTE | 2018-05-17 12:37 | ASMTDCNOTE ---
Case Management Discharge Discharge Order Complete? Answers: Yes Patient to Obtain Answers: Other Notes: [facility] Transportation Arranged Answers: Other Notes: [facility] will Pick (Date 05/17/2018 03:00 PM & Time) Faxed Final Orders Answers: Yes Agency/Facility Transfer Answers: Yes Report Printed & Faxed to Receiving Agency Family Notified Answers: Yes Discharge Comments Notes: D/w MD, final orders faxed. Riccardo santiago notified that authorization renewed today by [facility], iza auth number, [id number]. RN to call report. Date Signed: 05/17/2018 12:36 PM Electronically Signed By:Muriel Daly RN
== END 2018-05-17 15:06 | DRG 26 ==
LOC: F2N 05-10 01:40 → F3N 05-10 12:29 → F2N 05-10 17:19 → F3N 05-13 13:48
PROVIDERS: ADMIT Family Medicine; ATTEND Family Medicine
PROC: 30233K1 Transfusion of Nonautologous Frozen Plasma into Peripheral Vein, Percutaneous Approach (ICD-10-PCS; 2018-05-10)
PROC: 00C40ZZ Extirpation of Matter from Intracranial Subdural Space, Open Approach (ICD-10-PCS; principal; 2018-05-10 18:30)
PROC: 06H03DZ Insertion of Intraluminal Device into Inferior Vena Cava, Percutaneous Approach (ICD-10-PCS; 2018-05-12)
DX: I62.01 Nontraumatic acute subdural hemorrhage (principal); J84.9 Interstitial pulmonary disease, unspecified; I62.03 Nontraumatic chronic subdural hemorrhage; Z79.01 Long term (current) use of anticoagulants; E03.9 Hypothyroidism, unspecified; M79.7 Fibromyalgia; F32.9 Major depressive disorder, single episode, unspecified; G89.29 Other chronic pain; G25.81 Restless legs syndrome; K21.9 Gastro-esophageal reflux disease without esophagitis; I10 Essential (primary) hypertension; Z66 Do not resuscitate; Z86.711 Personal history of pulmonary embolism; Z86.718 Personal history of other venous thrombosis and embolism; Z87.891 Personal history of nicotine dependence; H50.9 Unspecified strabismus
CPT/HCPCS: 92507-GN; 92523-GN; 97112-GP; 97116-GP; 97162-GP; 97166-GO; 97530-GO; 97530-GP; 97535-GO; C1713; C1769; G0515-GO; J0360; J0690; J1100; J1580; J1644; J2001; J2405; J2704; J3010; P9016; P9017; Q9967

== ENCOUNTER 2018-07-15 12:36 | Emergency (ER) | payer OTHER ==
--- NOTE | 2018-07-15 13:22 | EDPHY ---
H & P Time Seen by Provider: 07/15/18 12:51 HPI/ROS: CHIEF COMPLAINT: Foot pain HISTORY OF PRESENT ILLNESS: Patient is a 70-year-old female who comes in with left foot pain. The patient states that there is a bump on her left foot and his grown in size. She noticed redness surrounding the bump. She had previous bunion type surgery on that foot [address] Hayes. Patient denies any recent trauma or fall. Patient has had no fevers or chills. Of note, the triage sheet states the patient has a "left leg injury" and a " left knee pain." However, the patient has no knee pain. The pain is isolated to the foot. REVIEW OF SYSTEMS: 10 systems were reveiwed and are negative with the exception of the elements mentioned in the history of present illness. Past Medical/Surgical History: Includes fibromyalgia, GERD, depression, hypertension, interstitial lung disease , PE Past surgical history: Includes neck fusion, lumbar fusion, hysterectomy Social history: Patient does not smoke Smoking Status: Former smoker Physical Exam: Vitals noted General Appearance: Alert and no distress. Head: Pupils equal. Normal. Respiratory: No respiratory distress. Cardiac: regular rate and rhythm. Extremities: The patient has a longitudinal scar over her 1st and 2nd metatarsal. At this location there is swelling and a firm palpable mass. There is mild surrounding erythema. No warmth. No streaking up the foot. Skin: No rashes or lesions. Neuro: Alert. Normal mood and affect. Constitutional: Initial Vital Signs Temperature (C) 37.2 C 07/15/18 12:41 Heart Rate 73 07/15/18 12:41 Respiratory Rate 18 07/15/18 12:41 Blood Pressure 149/63 H 07/15/18 12:41 O2 Sat (%) 92 07/15/18 12:41 O2 Delivery Mode Room Air Allergies/Adverse Reactions: No Known Allergies Allergy (Verified 07/15/18 12:40) Home Medications: Medication Instructions Recorded Atorvastatin Calcium [Lipitor 10 10 mg PO DAILY 03/17/16 mg (*)] Citalopram Hydrobromide [celeXA 10 20 mg PO DAILY 03/17/16 MG] Furosemide [Lasix 20 MG (*)] 20 mg PO DAILY 03/17/16 Gabapentin [Neurontin 300 MG (*)] 300 mg PO HS 03/17/16 Gabapentin [Neurontin 300 MG (*)] 600 mg PO DAILY 03/17/16 Levothyroxine [Synthroid 112 mcg 168 mcg PO DAILY06 03/17/16 (*)] Potassium Cl [Klor-Con 10 meq (RX)] 10 meq PO BID 03/17/16 Ranitidine HCl [Taladine] 150 mg PO BID 03/17/16 amLODIPine BESYLATE [Norvasc 10 mg 10 mg PO HS 03/17/16 (*)] traMADol [Ultram 50 mg (*)] 50 mg PO HS 03/17/16 Citalopram Hydrobromide [celeXA 10 10 mg PO HS 05/10/18 MG] Acetaminophen [Tylenol 325mg (*)] 650 mg PO Q8 tab 05/17/18 Atenolol [Tenormin 25 mg (*)] 25 mg PO BID tab 05/17/18 Hydrocodone/APAP 5/325 [[place] 1 - 2 tab PO Q4HRS PRN tab 05/17/18 5/325 (*)] Polyethylene Glycol 3350 [Miralax 17 gm PO DAILY pkt 05/17/18 17 gm (*)] Sennosides/Docusate Sodium 1 - 2 tab PO BID tab 05/17/18 [Senokot-S] levETIRAcetam [Keppra 500 mg (*)] 500 mg PO BID tab 05/17/18 Diclofenac Sodium 1% [Voltaren Gel 2 gm TP BID #1 tube 07/15/18 (*)] Medical Decision Making - Diagnostics Imaging Results: Imaging Impressions Foot X-Ray 07/15/18 13:19 Impression: 1. 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 2. Sequela of prior great toe bunionectomy. 3. Diffuse bone demineralization with no acute fracture observed. ED Course/Re-evaluation: In the emergency department I performed bedside ultrasound on left foot. Left foot ultrasound: Indication pain A superficial ultrasound was performed. There is no significant fluid collection. No visible foreign body. X-ray: Please refer the dictated report. I reviewed the images with Dr. Macias. I discussed the results with the patient. I answered all her questions. At this time she will be given Voltaren cream to use on the area of redness. She will follow up with Orthopedics. She is given contact information will call 1st thing tomorrow morning. Differential Diagnosis: My differential includes but is not limited to fracture, dislocation, foreign body, cellulitis, abscess I think this is less likely abscess or cellulitis. I have considered osteomyelitis. At this time she will be treated conservatively with anti- inflammatory medication. She will follow up closely with Orthopedics for re- evaluation. Departure - Departure Disposition: Home, Routine, Self-Care Clinical Impression: Foot pain, left Condition: Good Instructions: Swollen Joint (ED), Arthralgia (ED) Additional Instructions: Use the the cream over the area of redness. You need close follow-up with Orthopedics. Call Monday morning to make an appointment. Return with increasing redness, swelling, fever or any other concerns. Referrals: Mahamed Martino MD [Medical Doctor] - 2-3 days without fail Prescriptions: Diclofenac Sodium 1% [Voltaren Gel (*)] 2 gm TP BID #1 tube
[2018-07-15 14:16] VITALS: BP 155/82
== END 2018-07-15 14:45 | disposition home or self-care (01) ==
DX: M79.672 Pain in left foot (principal); M15.4 Erosive (osteo)arthritis; I10 Essential (primary) hypertension

== ENCOUNTER 2018-07-16 06:08 | Emergency (ER) | payer OTHER ==
[2018-07-16] MEDS ORDERED: CEPHALEXIN 500 MG CAP PO ONE (06:30)
[2018-07-16] MEDS ORDERED: CEPHALEXIN 500MG PREPACK#4 BTL TAKEHOME ONE (06:30)
[2018-07-16] MEDS ORDERED: ACETAMINOPHEN 500 MG TAB PO ONE (06:30)
[2018-07-16] MEDS ORDERED: IBUPROFEN 200 MG TAB PO ONE (06:31)
--- NOTE | 2018-07-16 06:32 | EDPHY ---
H & P Stated Complaint: L leg pain, seen earlier, can't walk Time Seen by Provider: 07/16/18 06:17 HPI/ROS: HPI The patient presents with ongoing left foot pain, seen in the emergency department yesterday and discharged with anti-inflammatories after relatively unremarkable x-ray and ultrasound. She did not take any medication. She had some trouble sleeping overnight because of pain. She thinks that the bump on her left foot has grown in size and is more red than previously. She has a remote history of bunion operation performed by Dr. Hayes a seafood clerk. She has not had problems with this foot recently. She has no history of previous cellulitis or abscess.. REVIEW OF SYSTEMS 10 systems were reviewed and negative with the exception of the elements mentioned in the history of present illness. PMHx: GERD, depression, hypertension, fibromyalgia, remote bunion operation, followed at [facility] Hx: Here with her and her dog PHYSICAL General Appearance: Alert, no distress Eyes: Pupils equal and round no pallor or injection ENT, Mouth: Mucous membranes moist Respiratory: Breathing comfortably Neurological: A&O, moves all extremities Skin: Warm and dry, no rashes Extremities: Anterior surface of left foot with 2 x 2 cm area of redness, warmth, erythema, tenderness with underlying firmness without fluctuance, there is no lymphangitis streaking, leg edema Psychiatric: Patient is oriented X 3, there is no agitation Source: Patient Exam Limitations: No limitations - Personal History Current Tetanus Diphtheria and Acellular Pertussis (TDAP): Unsure - Medical/Surgical History Hx Asthma: No Hx Chronic Respiratory Disease: No Hx Diabetes: No Hx Cardiac Disease: No Hx Renal Disease: No Hx Cirrhosis: No Hx Alcoholism: No Hx HIV/AIDS: No Hx Splenectomy or Spleen Trauma: No Other PMH: fibromyalgia, GERD, depression, HTN, neck fusion, lumbar fusion, interstitial lung disease/PE. hysterectomy - Social History Smoking Status: Former smoker Constitutional: Initial Vital Signs Temperature (C) 36.7 C 07/16/18 06:09 Heart Rate 75 07/16/18 06:09 Respiratory Rate 18 07/16/18 06:09 Blood Pressure 172/92 H 07/16/18 06:09 O2 Sat (%) 95 07/16/18 06:09 O2 Delivery Mode Room Air Allergies/Adverse Reactions: No Known Allergies Allergy (Verified 07/16/18 06:09) Home Medications: Medication Instructions Recorded Atorvastatin Calcium [Lipitor 10 10 mg PO DAILY 03/17/16 mg (*)] Citalopram Hydrobromide [celeXA 10 20 mg PO DAILY 03/17/16 MG] Furosemide [Lasix 20 MG (*)] 20 mg PO DAILY 03/17/16 Gabapentin [Neurontin 300 MG (*)] 300 mg PO HS 03/17/16 Gabapentin [Neurontin 300 MG (*)] 600 mg PO DAILY 03/17/16 Levothyroxine [Synthroid 112 mcg 168 mcg PO DAILY06 03/17/16 (*)] Potassium Cl [Klor-Con 10 meq (RX)] 10 meq PO BID 03/17/16 Ranitidine HCl [Taladine] 150 mg PO BID 03/17/16 amLODIPine BESYLATE [Norvasc 10 mg 10 mg PO HS 03/17/16 (*)] traMADol [Ultram 50 mg (*)] 50 mg PO HS 03/17/16 Citalopram Hydrobromide [celeXA 10 10 mg PO HS 05/10/18 MG] Acetaminophen [Tylenol 325mg (*)] 650 mg PO Q8 tab 05/17/18 Atenolol [Tenormin 25 mg (*)] 25 mg PO BID tab 05/17/18 Hydrocodone/APAP 5/325 [[place] 1 - 2 tab PO Q4HRS PRN tab 05/17/18 5/325 (*)] Polyethylene Glycol 3350 [Miralax 17 gm PO DAILY pkt 05/17/18 17 gm (*)] Sennosides/Docusate Sodium 1 - 2 tab PO BID tab 05/17/18 [Senokot-S] levETIRAcetam [Keppra 500 mg (*)] 500 mg PO BID tab 05/17/18 Diclofenac Sodium 1% [Voltaren Gel 2 gm TP BID #1 tube 07/15/18 (*)] Cephalexin [Keflex (*)] 500 mg PO Q6H #28 cap 07/16/18 Medical Decision Making Procedures: Procedure incision and drainage: A skin wheal using 0.5 mL of lidocaine with epinephrine was placed. Using an 11 blade scalpel small stab incision was made over the most erythematous area, there was no return of any pus. Patient tolerated the procedure well with no immediate complications. Differential Diagnosis: 78-year-old female with several medical problems presents with left foot pain, seen yesterday for same though did not take any anti-inflammatory medications which she was prescribed, now with ongoing symptoms. She had an x-ray performed in the emergency department which did demonstrate post bunionectomy changes as well as some arthritis. Bedside ultrasound did not show any fluid collection. Here, I performed incision and drainage to rule out abscess. There was no pus seen. I suspect she has a cellulitis which is well-localized. We will t[place] this, start her on Keflex as she does not have a history of MRSA that we are aware of, I have instructed her to elevate, use ice, anti- inflammatory medications. She is happy with this plan and will be discharged home. - Data Points Medications Given: Discontinued Medications Acetaminophen (Tylenol) 1,000 mg PO EDNOW ONE Stop: 07/16/18 06:31 Last Admin: 07/16/18 06:36 Dose: 1,000 mg Cephalexin (Keflex 500 Mg Prepack#4) 1 btl TAKEHOME EDNOW ONE PRN Reason: Protocol Stop: 07/16/18 06:31 Last Admin: 07/16/18 06:37 Dose: 1 btl Cephalexin HCl (Keflex) 500 mg PO EDNOW ONE PRN Reason: Protocol Stop: 07/16/18 06:31 Last Admin: 07/16/18 06:37 Dose: 500 mg Ibuprofen (Motrin) 400 mg PO EDNOW ONE Stop: 07/16/18 06:32 Last Admin: 07/16/18 06:36 Dose: 400 mg Departure - Departure Disposition: Home, Routine, Self-Care Clinical Impression: Cellulitis of left foot Condition: Good Instructions: Cellulitis (ED) Additional Instructions: Please return to the emergency department if your worse in any way. Please elevate the leg, use ice as needed, take the antibiotic as prescribed and monitor the redness. Referrals: [facility] ,. [[facility] for Call Sched] - As per Instructions Prescriptions: Cephalexin [Keflex (*)] 500 mg PO Q6H #28 cap
[2018-07-16 06:58] VITALS: BP 161/74
== END 2018-07-16 06:58 | disposition home or self-care (01) ==
PROC: 0H9NXZZ Drainage of Left Foot Skin, External Approach (ICD-10-PCS; principal; 2018-07-16)
DX: L03.116 Cellulitis of left lower limb (principal)